=== PATIENT | female | born 1940 | race Caucasian/White ===

== ENCOUNTER 2017-11-10 22:20 | Emergency (ER) | payer MEDICARE ==
[~2017-11-10] VITALS: Ht 157.5 cm; Wt 109.8 kg
[~2017-11-10 22:20] MED LIST: ACET325 PO; ACYC200 PO; ALBU90OI6 INH; ASPI81CH PO; ASPI81EC PO; B-100 Complex1 EACH PO; CEFU250 PO; CIPR500 PO; CLOP75 PO; DOCU100 PO; FISH1000 PO; GLUCO PO; HYDACE5 PO; HYDCHL25 PO; Klor-Con 1010 MEQ PO; LEVSOD100 PO; LEVSOD125 PO; LISI20 PO; LOVA20 PO; MECL12.5 PO; MEGARED OMEGA-1 EAC1 PO; MELO7.5 PO; MORP30 PO; MUPI2TC TOP; Milk Of Ma400 MG/5 M PO; NITR100CA PO; POTA10T PO; PRED20 PO; TIOT18 INH; TRAM50 PO; TRIHYD253B PO; [UNRECOGNIZED DRUG - OTHER] PO
[2017-11-10 23:03] LABS: BASOPHILS ABSOLUTE AUTO 0.05 K/mm3 (0.00-0.23); BASOPHILS PERCENT AUTO 1 % (0-2); EOSINOPHILS ABSOLUTE AUTO 0.24 K/mm3 (0.00-0.68); EOSINOPHILS PERCENT AUTO 4 % (0-6); Hematocrit 38.6 % (33.0-51.0); Hemoglobin 11.9 g/dL (11.5-16.0); IMMATURE GRAN ABSOLUTE AUTO 0.01 K/mm3 (0.00-0.10); IMMATURE GRAN PERCENT AUTO 0 % (0-1); LYMPHOCYTES ABSOLUTE AUTO 1.33 K/mm3 (0.84-5.20); LYMPHOCYTES PERCENT AUTO 21 % (21-46); MONOCYTES ABSOLUTE AUTO 0.49 K/mm3 (0.16-1.47); MONOCYTES PERCENT AUTO 8 % (4-13); Mean Corpuscular HGB 25.2 pg (26.0-34.0); Mean Corpuscular HGB Conc 30.8 g/dL (31.5-36.5); Mean Corpuscular Volume 82 fL (80-100); Mean Platelet Volume 8.9 fL (9.1-12.4); NEUTROPHILS ABSOLUTE AUTO 4.35 K/mm3 (1.96-9.15); NEUTROPHILS PERCENT AUTO 67 % (41-73); Platelet Count 214 K/mm3 (150-400); RDW Coefficient Variation 17.2 % (11.7-14.2); RDW Standard Deviation 50.7 fL (35.1-46.3); Red Blood Cell Count 4.73 M/mm3 (3.80-5.20); White Blood Cell Count 6.47 K/mm3 (4.00-11.30)
[2017-11-10 23:28] LABS: Alanine Aminotransfer (ALT/SGP 17 U/L (12-78); Albumin, Blood 3.6 g/dL (3.4-5.0); Albumin/Globulin Ratio 1.1 (0.8-1.8); Alk Phos 85 U/L (50-136); Anion Gap 6 mmol/L (6-16); Aspartate Aminotrans (AST/SGOT 17 U/L (12-37); Bilirubin, Total 0.4 mg/dL (0.1-1.0); Blood Urea Nitrogen 22 mg/dL (8-24); Bun/Creatinine Ratio 20.8 (12.0-20.0); CO2, Blood 29 mmol/L (21-32); Calcium, Blood 10.2 mg/dL (8.5-10.1); Chloride, Blood 106 mmol/L (98-108); Creatinine, Blood 1.06 mg/dL (0.40-1.00); Globulin, Blood 3.4 g/dL (2.2-4.0); Glomerular Filtration Rate 54 (60-); Glucose, Blood 69 mg/dL (70-99); Potassium, Blood 4.3 mmol/L (3.5-5.5); Sodium, Blood 141 mmol/L (136-145); Troponin I <0.015 ng/mL (0.000-0.040)
[2017-11-11] MEDS ORDERED: Percocet 5-3251 EACH PO (00:55)
[2018-01-21] MEDS ORDERED: LEVSOD100 PO (00:53)
[2018-08-21] MEDS ORDERED: Mobic15 MG PO (11:29)
[2018-08-23] MEDS ORDERED: CIPR250 PO (02:30)
[2018-08-24] MEDS ORDERED: ROSUVASTATIN CA40 MG PO (15:46)
[2018-08-29] MEDS ORDERED: ALBU90OI INH (14:34)
[2018-08-29] MEDS ORDERED: DOCU100 PO (14:36)
[2018-08-29] MEDS ORDERED: CEPH500 PO (14:36)
[2018-08-29] MEDS ORDERED: NYSTATIN1 EAC1 TOP (14:37)
[2018-08-29] MEDS ORDERED: OMEG1CAP30 PO (14:38)
[2018-09-08] MEDS ORDERED: K-Dur10 MEQ PO (14:53)
[2018-09-08] MEDS ORDERED: Lasix20 MG PO (14:53)
== END 2017-11-11 01:38 | disposition home or self-care (01) ==
LOC: ER 22:20
PROVIDERS: Emergency Medicine
DX: M19.012 Primary osteoarthritis, left shoulder (principal); I10 Essential (primary) hypertension; E11.9 Type 2 diabetes mellitus without complications; E03.9 Hypothyroidism, unspecified; I25.2 Old myocardial infarction; Z88.2 Allergy status to sulfonamides; Z88.1 Allergy status to other antibiotic agents; Z88.5 Allergy status to narcotic agent; Z79.899 Other long term (current) drug therapy; Z79.82 Long term (current) use of aspirin; Z96.653 Presence of artificial knee joint, bilateral
CPT/HCPCS: 36415; 73030; 80053; 83880; 84484; 85025; 93005; 93010; 96374; 99283; J1885

== ENCOUNTER 2018-01-10 18:13 | Inpatient (IN) | payer MEDICARE ==
[~2018-01-10] VITALS: Ht 152.4 cm; Wt 96.7 kg
[~2018-01-10 18:13] MED LIST changes: +Percocet 5-3251 EACH PO
[2018-01-10 18:58] LABS: BASOPHILS ABSOLUTE AUTO 0.03 K/mm3 (0.00-0.23); BASOPHILS PERCENT AUTO 1 % (0-2); EOSINOPHILS ABSOLUTE AUTO 0.27 K/mm3 (0.00-0.68); EOSINOPHILS PERCENT AUTO 5 % (0-6); Hematocrit 35.3 % (33.0-51.0); IMMATURE GRAN ABSOLUTE AUTO 0.02 K/mm3 (0.00-0.10); IMMATURE GRAN PERCENT AUTO 0 % (0-1); LYMPHOCYTES ABSOLUTE AUTO 1.01 K/mm3 (0.84-5.20); LYMPHOCYTES PERCENT AUTO 17 % (21-46); MONOCYTES PERCENT AUTO 5 % (4-13); Mean Corpuscular HGB 25.5 pg (26.0-34.0); Mean Corpuscular HGB Conc 31.2 g/dL (31.5-36.5); Mean Corpuscular Volume 82 fL (80-100); Mean Platelet Volume 8.8 fL (9.1-12.4); NEUTROPHILS ABSOLUTE AUTO 4.17 K/mm3 (1.96-9.15); NEUTROPHILS PERCENT AUTO 72 % (41-73); Platelet Count 170 K/mm3 (150-400); RDW Coefficient Variation 16.5 % (11.7-14.2); RDW Standard Deviation 49.5 fL (35.1-46.3); Red Blood Cell Count 4.32 M/mm3 (3.80-5.20)
[2018-01-10 20:19] LABS: Albumin, Blood 3.3 g/dL (3.4-5.0); Bilirubin, Total 0.3 mg/dL (0.1-1.0); Bun/Creatinine Ratio 25.2 (12.0-20.0); Calcium, Blood 10.3 mg/dL (8.5-10.1); Creatinine, Blood 1.07 mg/dL (0.40-1.00); Globulin, Blood 3.4 g/dL (2.2-4.0); Total Protein, Blood 6.7 g/dL (6.4-8.2)
[2018-01-10 23:13] LABS: Source, Urine Clean Catch
[2018-01-10 23:15] LABS: Bilirubin, Urine Neg (Neg); Blood, Urine Neg (Neg); Glucose Qualitative, Urine Neg (Neg); Ketones, Urine Neg (Neg); Leukocyte Esterase, Urine Neg (Neg); Nitrite, Urine Neg (Neg); Protein, Urine Neg (Neg); Specific Gravity, Urine 1.015 (1.003-1.022); Urobilinogen, Urine NORM (Normal)
[2018-01-10 23:22] LABS: Appearance, Urine Clear (Clear); Color, Urine Yellow (P-Yellow)
== END 2018-01-15 17:33 | DRG 65 ==
LOC: ER 18:13 → MEDS 21:51
PROVIDERS: Emergency Medicine
DX: I63.9 Cerebral infarction, unspecified (principal); Z68.41 Body mass index [BMI] 40.0-44.9, adult; R47.01 Aphasia; R48.2 Apraxia; I10 Essential (primary) hypertension; E11.9 Type 2 diabetes mellitus without complications; E03.9 Hypothyroidism, unspecified; M54.9 Dorsalgia, unspecified; Z79.82 Long term (current) use of aspirin; E78.5 Hyperlipidemia, unspecified; E66.01 Morbid (severe) obesity due to excess calories
CPT/HCPCS: 36415; 70450; 72070; 80053; 81003; 82947; 83036; 85025; 92526; 92610; 93005; 93010; 97110; 97112; 97116; 97161; 97530; 99285; G8978; G8979; G8996; G8997; G8998

== ENCOUNTER 2018-01-21 00:38 | Emergency (ER) | payer MEDICARE ==
[~2018-01-21] VITALS: Ht 167.6 cm; Wt 113.4 kg
[2018-01-21] MEDS ORDERED: ASPI325 PO (00:52)
[2018-01-21] MEDS ORDERED: CLOP75 PO (00:52)
[2018-01-21] MEDS ORDERED: HYDCHL25 PO (00:53)
[2018-01-21] MEDS ORDERED: OMEG1CAP30 PO (00:53)
[2018-01-21] MEDS ORDERED: LEVSOD125 PO (00:53)
[2018-01-21] MEDS ORDERED: ZESTRIL40 MG PO (00:53)
[2018-01-21] MEDS ORDERED: POTCHL10ER PO (00:54)
[2018-01-21] MEDS ORDERED: MELO7.5 PO (00:54)
[2018-01-21] MEDS ORDERED: Tubersol (5 U/0.1 ML (00:54)
[2018-01-21 00:55] LABS: BASOPHILS ABSOLUTE AUTO 0.05 K/mm3 (0.00-0.23); BASOPHILS PERCENT AUTO 1 % (0-2); EOSINOPHILS ABSOLUTE AUTO 0.32 K/mm3 (0.00-0.68); EOSINOPHILS PERCENT AUTO 6 % (0-6); Hematocrit 38.1 % (33.0-51.0); Hemoglobin 11.8 g/dL (11.5-16.0); IMMATURE GRAN ABSOLUTE AUTO 0.01 K/mm3 (0.00-0.10); IMMATURE GRAN PERCENT AUTO 0 % (0-1); LYMPHOCYTES ABSOLUTE AUTO 1.55 K/mm3 (0.84-5.20); LYMPHOCYTES PERCENT AUTO 27 % (21-46); MONOCYTES ABSOLUTE AUTO 0.43 K/mm3 (0.16-1.47); MONOCYTES PERCENT AUTO 8 % (4-13); Mean Corpuscular HGB 25.9 pg (26.0-34.0); Mean Corpuscular Volume 84 fL (80-100); NEUTROPHILS ABSOLUTE AUTO 3.41 K/mm3 (1.96-9.15); NEUTROPHILS PERCENT AUTO 59 % (41-73); Platelet Count 205 K/mm3 (150-400); RDW Coefficient Variation 16.6 % (11.7-14.2); RDW Standard Deviation 50.8 fL (35.1-46.3); Red Blood Cell Count 4.56 M/mm3 (3.80-5.20); White Blood Cell Count 5.77 K/mm3 (4.00-11.30)
[2018-01-21] MEDS ORDERED: TRAM50 PO (00:55)
[2018-01-21] MEDS ORDERED: MECL12.5 PO (00:55)
[2018-01-21] MEDS ORDERED: Vitamin B Comple1 EA PO (00:55)
[2018-01-21] MEDS ORDERED: Novolog100 UNIT/2 (00:56)
[2018-01-21 01:14] LABS: Albumin, Blood 3.3 g/dL (3.4-5.0); Bilirubin, Total 0.3 mg/dL (0.1-1.0); Bun/Creatinine Ratio 33.9 (12.0-20.0); Calcium, Blood 10.4 mg/dL (8.5-10.1); Creatinine, Blood 1.21 mg/dL (0.40-1.00); Globulin, Blood 3.3 g/dL (2.2-4.0); Potassium, Blood 4.7 mmol/L (3.5-5.5); Total Protein, Blood 6.6 g/dL (6.4-8.2)
== END 2018-01-21 02:07 | disposition home or self-care (01) ==
LOC: ER 00:38
PROVIDERS: Emergency Medicine
DX: I63.9 Cerebral infarction, unspecified (principal); I69.320 Aphasia following cerebral infarction; E11.9 Type 2 diabetes mellitus without complications; I10 Essential (primary) hypertension; E03.9 Hypothyroidism, unspecified; Z79.82 Long term (current) use of aspirin; Z79.01 Long term (current) use of anticoagulants; Z79.4 Long term (current) use of insulin; Z88.2 Allergy status to sulfonamides; Z88.5 Allergy status to narcotic agent; Z88.1 Allergy status to other antibiotic agents; Z88.8 Allergy status to other drugs, medicaments and biological substances; Z79.899 Other long term (current) drug therapy
CPT/HCPCS: 80053; 85025; 93005; 93010; 99283

== ENCOUNTER 2018-05-25 00:10 | Emergency (ER) | payer MEDICARE ==
[~2018-05-25] VITALS: Ht 160 cm; Wt 99.3 kg
[~2018-05-25 00:10] MED LIST changes: +ASPI325 PO; +Novolog100 UNIT/2; +OMEG1CAP30 PO; +POTCHL10ER PO; +Tubersol (5 U/0.1 ML; +Vitamin B Comple1 EA PO; +ZESTRIL40 MG PO
[2018-05-25 01:45] LABS: Source, Urine Clean Catch
[2018-05-25 01:49] LABS: Bilirubin, Urine Neg (Neg); Blood, Urine 2+ (Neg); Glucose Qualitative, Urine Neg (Neg); Ketones, Urine Neg (Neg); Leukocyte Esterase, Urine 2+ (Neg); Nitrite, Urine Neg (Neg); Protein, Urine Neg (Neg); Specific Gravity, Urine 1.025 (1.003-1.022); Urobilinogen, Urine NORM (Normal)
[2018-05-25 01:52] LABS: Appearance, Urine Hazy (Clear); Color, Urine Yellow (P-Yellow)
[2018-05-25 01:59] LABS: Bacteria Many /hpf; Red Blood Cells, Urine 0-2 /hpf (0-2); Squamous Epithelial Cells Few /hpf (Few)
[2018-05-25] MEDS ORDERED: Macrobid 100 M100 MG PO (02:34)
== END 2018-05-25 02:42 | disposition home or self-care (01) ==
LOC: ER 00:10
PROVIDERS: Emergency Medicine
DX: N39.0 Urinary tract infection, site not specified (principal); Z88.2 Allergy status to sulfonamides; Z88.0 Allergy status to penicillin; Z88.5 Allergy status to narcotic agent; Z79.899 Other long term (current) drug therapy; Z79.82 Long term (current) use of aspirin; E11.9 Type 2 diabetes mellitus without complications; I10 Essential (primary) hypertension; E03.9 Hypothyroidism, unspecified; I25.2 Old myocardial infarction
CPT/HCPCS: 81001; 87086; 99283

== ENCOUNTER → 2018-06-04 | Outpatient (CLI) | payer MEDICARE ==
[~2018-06-04] MED LIST changes: +Macrobid 100 M100 MG PO
== END | disposition home or self-care (01) ==
LOC: LAB EV 09:30 → LAB SHORT 09:30
DX: N39.0 Urinary tract infection, site not specified (principal)
CPT/HCPCS: 87077; 87086; 87186

== ENCOUNTER 2018-06-25 11:25 | Inpatient (IN) | payer MEDICARE ==
[~2018-06-25] VITALS: Ht 157.5 cm; Wt 96.8 kg
[2018-06-25 12:13] LABS: BASOPHILS ABSOLUTE AUTO 0.04 K/mm3 (0.00-0.23); BASOPHILS PERCENT AUTO 1 % (0-2); EOSINOPHILS ABSOLUTE AUTO 0.14 K/mm3 (0.00-0.68); EOSINOPHILS PERCENT AUTO 2 % (0-6); Hemoglobin 13.1 g/dL (11.5-16.0); IMMATURE GRAN ABSOLUTE AUTO 0.01 K/mm3 (0.00-0.10); IMMATURE GRAN PERCENT AUTO 0 % (0-1); LYMPHOCYTES ABSOLUTE AUTO 0.84 K/mm3 (0.84-5.20); LYMPHOCYTES PERCENT AUTO 13 % (21-46); MONOCYTES ABSOLUTE AUTO 0.35 K/mm3 (0.16-1.47); MONOCYTES PERCENT AUTO 5 % (4-13); Mean Corpuscular HGB 28.2 pg (26.0-34.0); Mean Corpuscular Volume 88 fL (80-100); Mean Platelet Volume 8.4 fL (9.1-12.4); NEUTROPHILS PERCENT AUTO 79 % (41-73); Platelet Count 209 K/mm3 (150-400); RDW Coefficient Variation 13.5 % (11.7-14.2); RDW Standard Deviation 44.3 fL (35.1-46.3); Red Blood Cell Count 4.65 M/mm3 (3.80-5.20); White Blood Cell Count 6.58 K/mm3 (4.00-11.30)
[2018-06-25 12:38] LABS: Alanine Aminotransfer (ALT/SGP 15 U/L (12-78); Albumin, Blood 3.7 g/dL (3.4-5.0); Alk Phos 91 U/L (50-136); Anion Gap 5 mmol/L (6-16); Aspartate Aminotrans (AST/SGOT 12 U/L (12-37); Bilirubin, Total 0.5 mg/dL (0.1-1.0); Blood Urea Nitrogen 24 mg/dL (8-24); Bun/Creatinine Ratio 26.1 (12.0-20.0); CO2, Blood 29 mmol/L (21-32); Calcium, Blood 10.9 mg/dL (8.5-10.1); Chloride, Blood 107 mmol/L (98-108); Creatinine, Blood 0.92 mg/dL (0.40-1.00); Globulin, Blood 3.8 g/dL (2.2-4.0); Glomerular Filtration Rate >60 (60-); Glucose, Blood 88 mg/dL (70-99); Potassium, Blood 4.8 mmol/L (3.5-5.5); Sodium, Blood 141 mmol/L (136-145); Total Protein, Blood 7.5 g/dL (6.4-8.2); Troponin I 0.031 ng/mL (0.000-0.040)
[2018-06-25] MEDS ORDERED: LOSA25 PO (14:57)
[2018-06-25] MEDS ORDERED: [UNRECOGNIZED DRUG - CODE] PO (19:05)
[2018-06-26 03:40] LABS: Source, Urine Voided
[2018-06-26 03:44] LABS: Appearance, Urine Cloudy (Clear); Bilirubin, Urine Neg (Neg); Blood, Urine 3+ (Neg); Color, Urine Yellow (P-Yellow); Glucose Qualitative, Urine Neg (Neg); Ketones, Urine Neg (Neg); Leukocyte Esterase, Urine 3+ (Neg); Nitrite, Urine Pos (Neg); Protein, Urine 2+ (Neg); Urobilinogen, Urine NORM (Normal)
[2018-06-26 03:51] LABS: White Blood Cells, Urine TNTC /hpf (0-5)
[2018-06-26 03:52] LABS: Amorphous Mod (0-Heavy); Bacteria Many /hpf; Red Blood Cells, Urine 25-50 /hpf (0-2); Squamous Epithelial Cells Many /hpf (Few)
[2018-06-26 04:57] LABS: BASOPHILS ABSOLUTE AUTO 0.05 K/mm3 (0.00-0.23); BASOPHILS PERCENT AUTO 1 % (0-2); EOSINOPHILS ABSOLUTE AUTO 0.08 K/mm3 (0.00-0.68); EOSINOPHILS PERCENT AUTO 1 % (0-6); Hematocrit 38.1 % (33.0-51.0); Hemoglobin 12.2 g/dL (11.5-16.0); IMMATURE GRAN ABSOLUTE AUTO 0.02 K/mm3 (0.00-0.10); IMMATURE GRAN PERCENT AUTO 0 % (0-1); LYMPHOCYTES ABSOLUTE AUTO 0.99 K/mm3 (0.84-5.20); LYMPHOCYTES PERCENT AUTO 14 % (21-46); MONOCYTES ABSOLUTE AUTO 0.49 K/mm3 (0.16-1.47); MONOCYTES PERCENT AUTO 7 % (4-13); Mean Corpuscular HGB 27.9 pg (26.0-34.0); Mean Corpuscular Volume 87 fL (80-100); Mean Platelet Volume 8.6 fL (9.1-12.4); NEUTROPHILS ABSOLUTE AUTO 5.34 K/mm3 (1.96-9.15); NEUTROPHILS PERCENT AUTO 77 % (41-73); Platelet Count 192 K/mm3 (150-400); RDW Coefficient Variation 13.3 % (11.7-14.2); RDW Standard Deviation 43.1 fL (35.1-46.3); Red Blood Cell Count 4.38 M/mm3 (3.80-5.20); White Blood Cell Count 6.97 K/mm3 (4.00-11.30)
[2018-06-26 05:21] LABS: Calcium, Blood 10.4 mg/dL (8.5-10.1); Creatinine, Blood 0.96 mg/dL (0.40-1.00); Potassium, Blood 4.6 mmol/L (3.5-5.5); Troponin I 0.032 ng/mL (0.000-0.040)
[2018-06-29] MEDS ORDERED: TRAM50 PO (12:21)
[2018-06-29] MEDS ORDERED: PANT40 PO (12:22)
== END 2018-06-29 14:02 | disposition home or self-care (01) | DRG 313 ==
LOC: ER 11:25 → PCU 16:37
PROVIDERS: Emergency Medicine; Family Medicine
DX: R07.89 Other chest pain (principal); J44.9 Chronic obstructive pulmonary disease, unspecified; E11.9 Type 2 diabetes mellitus without complications; K21.9 Gastro-esophageal reflux disease without esophagitis; I25.2 Old myocardial infarction; I25.10 Atherosclerotic heart disease of native coronary artery without angina pectoris; I10 Essential (primary) hypertension; E03.9 Hypothyroidism, unspecified; I70.90 Unspecified atherosclerosis; F32.9 Major depressive disorder, single episode, unspecified; E78.00 Pure hypercholesterolemia, unspecified; M47.816 Spondylosis without myelopathy or radiculopathy, lumbar region; G89.29 Other chronic pain; M54.9 Dorsalgia, unspecified; E78.5 Hyperlipidemia, unspecified; I73.9 Peripheral vascular disease, unspecified; R26.81 Unsteadiness on feet; Z88.8 Allergy status to other drugs, medicaments and biological substances; Z88.2 Allergy status to sulfonamides; Z88.1 Allergy status to other antibiotic agents; Z88.5 Allergy status to narcotic agent; Z79.899 Other long term (current) drug therapy; Z79.82 Long term (current) use of aspirin; Z79.01 Long term (current) use of anticoagulants
CPT/HCPCS: 36415; 71046; 78452; 80048; 80053; 81001; 82947; 84484; 85025; 87077; 87086; 87186; 90686; 93005; 93010; 93017; 94640; 94760; 99285-25; A9500; J0706; J2785

== ENCOUNTER → 2018-07-10 | Outpatient (CLI) | payer MEDICARE ==
[~2018-07-10] MED LIST changes: +LOSA25 PO; +PANT40 PO; +[UNRECOGNIZED DRUG - CODE] PO
[2018-07-10 14:01] LABS: Source, Urine Clean Catch
[2018-07-10 15:15] LABS: Appearance, Urine Hazy (Clear); Bilirubin, Urine Neg (Neg); Blood, Urine 2+ (Neg); Color, Urine Yellow (P-Yellow); Glucose Qualitative, Urine Neg (Neg); Ketones, Urine Neg (Neg); Leukocyte Esterase, Urine 3+ (Neg); Nitrite, Urine Neg (Neg); Protein, Urine 1+ (Neg); Urobilinogen, Urine NORM (Normal)
[2018-07-10 15:24] LABS: Bacteria Many /hpf; Squamous Epithelial Cells Many /hpf (Few); White Blood Cells, Urine TNTC /hpf (0-5)
== END | disposition home or self-care (01) ==
LOC: LAB SHORT 14:00 → LAB 14:00
PROVIDERS: Family Medicine
DX: N30.01 Acute cystitis with hematuria (principal)
CPT/HCPCS: 81001; 87077; 87086; 87186

== ENCOUNTER 2018-10-25 02:33 | Emergency (ER) | payer MEDICARE ==
[~2018-10-25] VITALS: Ht 157.5 cm; Wt 113.4 kg
[~2018-10-25 02:33] MED LIST changes: +ALBU90OI INH; +CEPH500 PO; +CIPR250 PO; +K-Dur10 MEQ PO; +Lasix20 MG PO; +Mobic15 MG PO; +NYSTATIN1 EAC1 TOP; +ROSUVASTATIN CA40 MG PO
[2018-10-25] MEDS ORDERED: Tetracycline H500 MG PO (03:00)
[2018-10-25 03:18] LABS: BASOPHILS ABSOLUTE AUTO 0.03 K/mm3 (0.00-0.23); BASOPHILS PERCENT AUTO 1 % (0-2); EOSINOPHILS PERCENT AUTO 8 % (0-6); Hematocrit 42.2 % (33.0-51.0); IMMATURE GRAN ABSOLUTE AUTO 0.01 K/mm3 (0.00-0.10); IMMATURE GRAN PERCENT AUTO 0 % (0-1); LYMPHOCYTES ABSOLUTE AUTO 1.42 K/mm3 (0.84-5.20); LYMPHOCYTES PERCENT AUTO 22 % (21-46); MONOCYTES ABSOLUTE AUTO 0.52 K/mm3 (0.16-1.47); MONOCYTES PERCENT AUTO 8 % (4-13); Mean Corpuscular HGB 27.8 pg (26.0-34.0); Mean Corpuscular HGB Conc 30.8 g/dL (31.5-36.5); Mean Corpuscular Volume 90 fL (80-100); Mean Platelet Volume 8.7 fL (9.1-12.4); NEUTROPHILS ABSOLUTE AUTO 4.14 K/mm3 (1.96-9.15); NEUTROPHILS PERCENT AUTO 62 % (41-73); Platelet Count 184 K/mm3 (150-400); RDW Coefficient Variation 14.5 % (11.7-14.2); RDW Standard Deviation 47.7 fL (35.1-46.3); Red Blood Cell Count 4.68 M/mm3 (3.80-5.20); White Blood Cell Count 6.62 K/mm3 (4.00-11.30)
[2018-10-25 03:36] LABS: Albumin, Blood 3.3 g/dL (3.4-5.0); Bilirubin, Total 0.4 mg/dL (0.1-1.0); Bun/Creatinine Ratio 28.9 (12.0-20.0); Calcium, Blood 9.5 mg/dL (8.5-10.1); Creatinine, Blood 1.21 mg/dL (0.40-1.00); Globulin, Blood 3.3 g/dL (2.2-4.0); Potassium, Blood 3.8 mmol/L (3.5-5.5); Total Protein, Blood 6.6 g/dL (6.4-8.2)
[2018-10-25] MEDS ORDERED: Silvadene20 GM TOP (04:36)
== END 2018-10-25 04:50 | disposition home or self-care (01) ==
LOC: ER 02:33
PROVIDERS: Emergency Medicine
DX: B37.2 Candidiasis of skin and nail (principal); L30.9 Dermatitis, unspecified; E11.9 Type 2 diabetes mellitus without complications; I10 Essential (primary) hypertension; E03.9 Hypothyroidism, unspecified; I25.2 Old myocardial infarction; Z88.2 Allergy status to sulfonamides; Z88.0 Allergy status to penicillin; Z79.899 Other long term (current) drug therapy
CPT/HCPCS: 36415; 80053; 85025; 99283

== ENCOUNTER 2018-11-19 04:22 | Emergency (ER) | payer MEDICARE ==
[~2018-11-19] VITALS: Ht 157.5 cm; Wt 113.4 kg
[~2018-11-19 04:22] MED LIST changes: +Silvadene20 GM TOP; +Tetracycline H500 MG PO
[2018-11-19 04:57] LABS: BASOPHILS ABSOLUTE AUTO 0.02 K/mm3 (0.00-0.23); BASOPHILS PERCENT AUTO 0 % (0-2); EOSINOPHILS ABSOLUTE AUTO 0.56 K/mm3 (0.00-0.68); EOSINOPHILS PERCENT AUTO 9 % (0-6); Hematocrit 40.3 % (33.0-51.0); IMMATURE GRAN ABSOLUTE AUTO 0.01 K/mm3 (0.00-0.10); IMMATURE GRAN PERCENT AUTO 0 % (0-1); LYMPHOCYTES ABSOLUTE AUTO 1.32 K/mm3 (0.84-5.20); LYMPHOCYTES PERCENT AUTO 20 % (21-46); MONOCYTES ABSOLUTE AUTO 0.39 K/mm3 (0.16-1.47); MONOCYTES PERCENT AUTO 6 % (4-13); Mean Corpuscular HGB 26.9 pg (26.0-34.0); Mean Corpuscular HGB Conc 29.8 g/dL (31.5-36.5); Mean Corpuscular Volume 90 fL (80-100); Mean Platelet Volume 8.9 fL (9.1-12.4); NEUTROPHILS ABSOLUTE AUTO 4.22 K/mm3 (1.96-9.15); NEUTROPHILS PERCENT AUTO 65 % (41-73); Platelet Count 173 K/mm3 (150-400); RDW Coefficient Variation 13.4 % (11.7-14.2); RDW Standard Deviation 44.5 fL (35.1-46.3); Red Blood Cell Count 4.46 M/mm3 (3.80-5.20); White Blood Cell Count 6.52 K/mm3 (4.00-11.30)
[2018-11-19 05:16] LABS: Albumin, Blood 3.5 g/dL (3.4-5.0); Albumin/Globulin Ratio 1.1 (0.8-1.8); Bilirubin, Total 0.4 mg/dL (0.1-1.0); Bun/Creatinine Ratio 26.5 (12.0-20.0); Calcium, Blood 9.9 mg/dL (8.5-10.1); Creatinine, Blood 0.98 mg/dL (0.40-1.00); Globulin, Blood 3.1 g/dL (2.2-4.0); Potassium, Blood 4.1 mmol/L (3.5-5.5); Total Protein, Blood 6.6 g/dL (6.4-8.2)
== END 2018-11-19 05:42 | disposition home or self-care (01) ==
LOC: ER 04:22
PROVIDERS: Emergency Medicine
DX: R06.02 Shortness of breath (principal); Z76.0 Encounter for issue of repeat prescription; Z88.2 Allergy status to sulfonamides; Z88.1 Allergy status to other antibiotic agents; Z88.5 Allergy status to narcotic agent; Z79.899 Other long term (current) drug therapy; Z88.0 Allergy status to penicillin; Z79.82 Long term (current) use of aspirin; I10 Essential (primary) hypertension; E11.9 Type 2 diabetes mellitus without complications; E03.9 Hypothyroidism, unspecified; I25.2 Old myocardial infarction
CPT/HCPCS: 71046; 80053; 85025; 93005; 93010; 94640; 99285-25

== ENCOUNTER 2018-12-11 19:23 | Emergency (ER) | payer MEDICARE ==
[~2018-12-11] VITALS: Ht 157.5 cm; Wt 115.7 kg
== END 2018-12-11 21:41 | disposition home or self-care (01) ==
LOC: ER 19:23
DX: S70.01XA Contusion of right hip, initial encounter (principal); E11.9 Type 2 diabetes mellitus without complications; I10 Essential (primary) hypertension; E03.9 Hypothyroidism, unspecified; I25.2 Old myocardial infarction; Z88.2 Allergy status to sulfonamides; Z88.1 Allergy status to other antibiotic agents; Z88.5 Allergy status to narcotic agent; Z88.8 Allergy status to other drugs, medicaments and biological substances; Z79.899 Other long term (current) drug therapy; Z79.82 Long term (current) use of aspirin; Z79.02 Long term (current) use of antithrombotics/antiplatelets; W18.30XA Fall on same level, unspecified, initial encounter
CPT/HCPCS: 72100; 73502; 96374; 99283-25; J1170

== ENCOUNTER 2018-12-20 22:37 | Emergency (ER) | payer MEDICARE ==
[~2018-12-20] VITALS: Ht 157.5 cm; Wt 113.4 kg
[2018-12-20] MEDS ORDERED: Zithromax250 MG PO (23:50)
[2018-12-20] MEDS ORDERED: Prednisone20 MG PO (23:50)
[2018-12-21] MEDS ORDERED: AEROECLIPSE II1 EACH INH (00:28)
[2018-12-21] MEDS ORDERED: ALBU3IS INH (00:28)
== END 2018-12-21 00:50 | disposition home or self-care (01) ==
LOC: ER 22:37
DX: J44.1 Chronic obstructive pulmonary disease with (acute) exacerbation (principal); E11.9 Type 2 diabetes mellitus without complications; I10 Essential (primary) hypertension; E03.9 Hypothyroidism, unspecified; I25.2 Old myocardial infarction; Z79.899 Other long term (current) drug therapy; Z79.82 Long term (current) use of aspirin
CPT/HCPCS: 94640; 96372; 99284-25; J2920

== ENCOUNTER 2019-01-13 10:22 | Emergency (ER) | payer MEDICARE ==
[~2019-01-13] VITALS: Ht 157.5 cm; Wt 113.4 kg
[~2019-01-13 10:22] MED LIST changes: +AEROECLIPSE II1 EACH INH; +ALBU3IS INH; +Prednisone20 MG PO; +Zithromax250 MG PO
[2019-01-13 10:53] LABS: BASOPHILS ABSOLUTE AUTO 0.03 K/mm3 (0.00-0.23); BASOPHILS PERCENT AUTO 1 % (0-2); EOSINOPHILS ABSOLUTE AUTO 0.52 K/mm3 (0.00-0.68); EOSINOPHILS PERCENT AUTO 11 % (0-6); Hemoglobin 13.7 g/dL (11.5-16.0); IMMATURE GRAN ABSOLUTE AUTO 0.01 K/mm3 (0.00-0.10); IMMATURE GRAN PERCENT AUTO 0 % (0-1); LYMPHOCYTES ABSOLUTE AUTO 0.91 K/mm3 (0.84-5.20); LYMPHOCYTES PERCENT AUTO 19 % (21-46); MONOCYTES ABSOLUTE AUTO 0.23 K/mm3 (0.16-1.47); MONOCYTES PERCENT AUTO 5 % (4-13); Mean Corpuscular HGB 27.1 pg (26.0-34.0); Mean Corpuscular HGB Conc 29.8 g/dL (31.5-36.5); Mean Corpuscular Volume 91 fL (80-100); Mean Platelet Volume 8.7 fL (9.1-12.4); NEUTROPHILS ABSOLUTE AUTO 3.22 K/mm3 (1.96-9.15); NEUTROPHILS PERCENT AUTO 65 % (41-73); Platelet Count 137 K/mm3 (150-400); RDW Standard Deviation 52.7 fL (35.1-46.3); Red Blood Cell Count 5.06 M/mm3 (3.80-5.20); White Blood Cell Count 4.92 K/mm3 (4.00-11.30)
[2019-01-13 11:14] LABS: Alanine Aminotransfer (ALT/SGP 13 U/L (12-78); Albumin, Blood 3.7 g/dL (3.4-5.0); Albumin/Globulin Ratio 1.2 (0.8-1.8); Alk Phos 91 U/L (50-136); Anion Gap 4 mmol/L (6-16); Aspartate Aminotrans (AST/SGOT 21 U/L (12-37); Bilirubin, Total 0.5 mg/dL (0.1-1.0); Blood Urea Nitrogen 22 mg/dL (8-24); Bun/Creatinine Ratio 20.6 (12.0-20.0); CO2, Blood 32 mmol/L (21-32); Calcium, Blood 10.4 mg/dL (8.5-10.1); Chloride, Blood 109 mmol/L (98-108); Creatinine, Blood 1.07 mg/dL (0.40-1.00); Globulin, Blood 3.1 g/dL (2.2-4.0); Glomerular Filtration Rate 53 (60-); Glucose, Blood 101 mg/dL (70-99); Potassium, Blood 4.7 mmol/L (3.5-5.5); Sodium, Blood 145 mmol/L (136-145); Total Protein, Blood 6.8 g/dL (6.4-8.2); Troponin I <0.015 ng/mL (0.000-0.040)
--- NOTE | 2019-01-13 11:34 | NUR ---
Call back - Pt known from previous hospital visit. Pt's daughter Chelo and GD Sherice enter and stay for a short time. After leaving, exploration of pt's spiritual pain initiated. Pt wrestling with staying with family and going home with Anatoliy. 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 Pt states she feels she has been dealing a UTI for 3 weeks, but has been unable to have it checked with circumstances at home. Addressed the possibility of speaking with a licensing worker about entering a halfway. She was interested and JANNY Longo was notified. Prayer was provided for the pt as a means of comfort.
[2019-01-13] MEDS ORDERED: Lotrimin AF90 GM TOP (13:38)
== END 2019-01-13 15:05 | disposition home or self-care (01) ==
LOC: ER 10:22
PROVIDERS: Emergency Medicine
DX: F32.9 Major depressive disorder, single episode, unspecified (principal); F43.9 Reaction to severe stress, unspecified; R32 Unspecified urinary incontinence; E11.9 Type 2 diabetes mellitus without complications; I10 Essential (primary) hypertension; E03.9 Hypothyroidism, unspecified; I25.2 Old myocardial infarction; Z88.2 Allergy status to sulfonamides; Z88.1 Allergy status to other antibiotic agents; Z88.5 Allergy status to narcotic agent; Z88.8 Allergy status to other drugs, medicaments and biological substances; Z79.899 Other long term (current) drug therapy; Z79.82 Long term (current) use of aspirin; Z79.02 Long term (current) use of antithrombotics/antiplatelets; Z79.52 Long term (current) use of systemic steroids
CPT/HCPCS: 36415; 71046; 80053; 83880; 84484; 85025; 93005; 93010; 99284-25

== ENCOUNTER 2019-01-13 18:29 | Inpatient (IN) | payer MEDICARE ==
[~2019-01-13] VITALS: Ht 157.5 cm; Wt 110.5 kg
[~2019-01-13 18:29] MED LIST changes: +Lotrimin AF90 GM TOP
[2019-01-13 19:15] LABS: Source, Urine Catheter
[2019-01-13 19:20] LABS: Bilirubin, Urine Neg (Neg); Blood, Urine 4+ (Neg); Glucose Qualitative, Urine Neg (Neg); Ketones, Urine Neg (Neg); Leukocyte Esterase, Urine 2+ (Neg); Nitrite, Urine Neg (Neg); Protein, Urine Neg (Neg); Specific Gravity, Urine 1.015 (1.003-1.022); Urobilinogen, Urine NORM (Normal)
[2019-01-13 19:26] LABS: Color, Urine Pale Yellow (P-Yellow)
[2019-01-13 19:27] LABS: Appearance, Urine Clear (Clear)
[2019-01-13 19:28] LABS: Bacteria Many /hpf; Squamous Epithelial Cells Not Seen /hpf (Few)
--- NOTE | 2019-01-14 00:58 | NUR ---
2130: PATIENT ARRIVED TO THE MEDICAL FLOOR; ASSESSMENTS/ADMISSION COMPLETED PATIENT HAS AN IV #22 RH THAT FLUSHES WELL. WRAPPED WITH COBAN. SKIN AROUND PERINEUM BRIGHT RED AND IRRITATED. AND NYSTATIN POWDER WAS APPLIED PER ORDER. BI;ATERA; FEET RED AND NUMB AND TINGLING PER PATIENT. 0015: SPOKE TO ONCALL HOSPITALIST AND REQ TYLENOL FOR HEADACHE FOR THIS PATIENT. ORDERS RECVD PER EMAR
[2019-01-14 05:35] LABS: Bun/Creatinine Ratio 17.8 (12.0-20.0); Calcium, Blood 10.6 mg/dL (8.5-10.1); Creatinine, Blood 1.01 mg/dL (0.40-1.00); Potassium, Blood 3.9 mmol/L (3.5-5.5)
--- NOTE | 2019-01-14 14:05 | NUR ---
PT HAS RETURNED FROM IMAGING FOR MRI EXAM.
--- NOTE | 2019-01-14 16:55 | NUR ---
SHIFT SUMMARY: PT IS COOPERATIVE WITH CARE. SHE NEGLECTS USE OF HER RIGHT SIDE AND NEEDS REMINDERS TO USE IT. SHE NEEDED ASSISTANCE WITH EATING BREAKFAST AND LIQUID/PUDDING TEXTURES. CHANGED DIET TO FINGER FOODS AND SHE IS ABLE TO COORDINATE WELL ENOUGH TO FEED HERSELF. SHE WORKED WITH PT/OT AND IS A MAX ASSIST WITH RECOMMENDATION FOR OVERHEAD LIFT. BAKERY DECORATOR NOTIFIED OF NEED FOR LIFT RM. PT SAT UP IN A 90 DEGREE SITTING POSITION FOR LUNCH AND WILL ENCOURAGE FOR DINNER. SHE IS ABLE TO SWALLOW 1 PILL AT A TIME WITH WATER. WILL CTM UNTIL REPORT GIVEN TO NEXT SHIFT RN.
--- NOTE | 2019-01-14 17:21 | NUR ---
CLARIFIED ORDER WITH JENNI MARROQUIN TO LEAVE WILSON CATH THAT WAS ORDERED AND PLACED IN THE E.D. IN PLACE.
--- NOTE | 2019-01-15 04:15 | NUR ---
SHIFT SUMMARY: PT IS ALERT AND ORIENTED. PT IS CALM AND COOPERATIVE WITH CARE. PT CALLS APPROPRIATELY. PT IS A 2 PERSON ASSIST AND W/C BOUND AT BASELINE. PT SLEPT MOST OF THE NIGHT AND MORNING HOURS. PT DENIES PAIN, NAUSEA, VOMITING, AND SOB. TURNS THROUGHOUT THE NIGHT. WILSON PATENT AND DRAINING YELLOW URINE. NO ACUTE CHANGES OR COMPLICATIONS THIS SHIFT. BED IN LOW POSITION, CALL LIGHT WITHIN REACH.
--- NOTE | 2019-01-15 14:12 | NUR ---
Patient granted me permission to care for her.
--- NOTE | 2019-01-15 15:57 | NUR ---
SHIFT SUMMARY- PT A/O, FORGETFUL AT TIMES. PT DENIES ANY PAIN OR OTHER COMPLAINTS T/O SHIFT. LS DIMINISHED, ON RA. HRR. RIGHT SIDE WEAKNESS NOTICED FROM PREVIOUS CVA PER PT. WILSON IN PLACE, PATENT AND DRAINING, WILL D/C PER DR HASSAN. ORAL ANTIBIOTICS STARTED FOR UTI. YEAST TO ABD FOLDS/ ELENITA AREA, NYSTATIN APPLIED. PT/OT RECOMMENDING SNF, PT DID AGREE TO GO FOR 10 DAYS THEN HOME WITH HOME HEALTH PER DAUGHTER REQUEST. NO OTHER ACUTE CHANGES THIS SHIFT.
--- NOTE | 2019-01-15 16:04 | NUR ---
REPORT GIVEN TO JANNY BERRY TO ASSUME CARE OF PT.
--- NOTE | 2019-01-15 17:33 | NUR ---
assumed pt care PT IS A/O X3, PLEASANT/RECEPTIVE, STATE NO DISCOMFORT @ THIS TIME. STATE UNABLE TO BR WT OR AMBULATE @ THIS TIME. R ACCORDION MAKER GOOD HOWEVER WEAKER THAN L. SHE STATE SHE IS R HANDED HOWEVER ABLE TO FEED HERSELF USING L. STATE SHE IS NORMALLY ABLE TO TELL WHEN SHE NEEDS TO VOID, WILL CALL FOR BEDPAN. KATIE CATH D/C @ THIS TIME, 700 CL YELLOW URINE.
--- NOTE | 2019-01-15 17:48 | NUR ---
Mrs. Quesada tells me she is happy to be feeling healed and is looking forward to going home today. Her grand-daughter takes care of her and they have a good relationship. She smiles easily and responded well to prayer and affirmation. No needs or fears presented. Electronics Repair Technician services will remain available.
--- NOTE | 2019-01-16 05:06 | NUR ---
VSS, AFEBRILE, STABLE, NO SIGNIFICANT CHANGES OVERNOC, SLEPT WELL, NO COMPLAINTS, WILL REPORT TO ON-COMING SHIFT.
--- NOTE | 2019-01-16 13:00 | NUR ---
PT ARRIVED TO ROOM 336 VIA W/C, SBA INTO BED. PT ORIENTED TO ROOM AND CALL SYSTEM, CALL LIGHT IN REACH. NO COMPLAINTS AT THIS TIME.
--- NOTE | 2019-01-16 17:38 | NUR ---
SHIFT SUMMARY- PT A/O BUT FORGETFUL AT TIMES. PT DENIES ANY COMPLAINTS T/O SHIFT. PT UP TO CHAIR VIA TOM LIFT. PT WITH RIGHT SIDED WEAKNESS R/T CVA. LS CLEAR, ON RA. HRR. INCONT OF URINE. PT AWAITING INSURANCE APRROVAL FOR [facility]. NO OTHER ACUTE CHANGES THIS SHIFT.
--- NOTE | 2019-01-17 03:43 | NUR ---
SHIFT SUMMARY PATIENT HAD NO ACUTE CHANGES OBSERVED DURING THE SHIFT. PATIENT AXO X3 BUT FORGETFUL AT TIMES. TAKES MEDICATION WHOLE ONE AT A TIME W/PUDDING. DENIES PAIN, SOB, AND N/V. PIV REMAINS INTACT. ON RA. BREATHING TX BY RT. COOPERATIVE W/CARE. CALL LIGHT IN REACH. BED IN LOWEST POSITION. WILL CONTINUE TO MONITOR UNTIL DAY SHIFT NURSE ASSUMES CARE.
[2019-01-17] MEDS ORDERED: ACET325 PO (10:21)
[2019-01-17] MEDS ORDERED: BISA10S PR (10:22)
[2019-01-17] MEDS ORDERED: DOCU100 PO (10:22)
[2019-01-17] MEDS ORDERED: Nyamyc15 GM TOP (10:23)
[2019-01-17] MEDS ORDERED: Milk Of Ma400 MG/5 M PO (10:23)
[2019-01-17] MEDS ORDERED: NITR100CA PO (10:24)
--- NOTE | 2019-01-17 12:57 | NUR ---
DISCHARGE PT DISCHARGED TO [facility]. THIS RN GAVE REPORT TO JANNY TRIPLETT. IV REMOVED WITHOUT DIFFICULTY. PT TRANSFERRED TO WHEELCHAIR VAN BY WHEELCHAIR. TOM LIFT USED TO GET PT IN TO WHEELCHAIR. PT'S BELONGINGS WITH PT.
== END 2019-01-17 11:43 | DRG 65 ==
LOC: ER 18:29 → MEDS 18:30
PROVIDERS: Emergency Medicine; ADMIT Family Medicine
DX: I63.9 Cerebral infarction, unspecified (principal); Z68.42 Body mass index [BMI] 45.0-49.9, adult; N39.0 Urinary tract infection, site not specified; F32.9 Major depressive disorder, single episode, unspecified; Z79.82 Long term (current) use of aspirin; E11.9 Type 2 diabetes mellitus without complications; I10 Essential (primary) hypertension; E03.9 Hypothyroidism, unspecified; I25.2 Old myocardial infarction; Z96.641 Presence of right artificial hip joint; E66.01 Morbid (severe) obesity due to excess calories; I25.10 Atherosclerotic heart disease of native coronary artery without angina pectoris; J44.9 Chronic obstructive pulmonary disease, unspecified; Z79.02 Long term (current) use of antithrombotics/antiplatelets; B35.3 Tinea pedis; M47.816 Spondylosis without myelopathy or radiculopathy, lumbar region; R41.89 Other symptoms and signs involving cognitive functions and awareness; Z66 Do not resuscitate
CPT/HCPCS: 36415; 51702; 70450; 70551; 80048; 81001; 82947; 87077; 87086; 87186; 93005; 93010; 94640; 94760; 96365-59; 97110; 97162; 97166; 97530; 97535; 99285-25; J0696; J1650

== ENCOUNTER → 2019-03-19 | Outpatient (CLI) | payer MEDICARE, SELFPAY ==
[~2019-03-19] MED LIST changes: +ACET500 PO; +ALBU2.5V5 INH; +BISA10S PR; +BREO ELLIPTA 21 EACH INH; +Nyamyc15 GM TOP; +SYNTHROID175 MCG PO; +Vsl#3 Capsule1 EACH
[2019-03-19 11:27] LABS: Bilirubin, Urine Neg (Neg); Blood, Urine 3+ (Neg); Glucose Qualitative, Urine Neg (Neg); Ketones, Urine Neg (Neg); Leukocyte Esterase, Urine 3+ (Neg); Nitrite, Urine Neg (Neg); Protein, Urine 2+ (Neg); Specific Gravity, Urine 1.025 (1.003-1.022); Urobilinogen, Urine NORM (Normal)
[2019-03-19 12:06] LABS: Appearance, Urine Hazy (Clear); Color, Urine Yellow (P-Yellow)
[2019-03-19 12:08] LABS: Granular Casts 0-2 /lpf (0)
[2019-03-19 12:09] LABS: Bacteria Many /hpf; Squamous Epithelial Cells Many /hpf (Few); White Blood Cells, Urine 25-50 /hpf (0-5)
== END | disposition home or self-care (01) ==
LOC: LAB 11:13 → LAB HH 11:13
PROVIDERS: Family Medicine
DX: N39.0 Urinary tract infection, site not specified (principal)
CPT/HCPCS: 81001; 87077; 87086; 87186

== ENCOUNTER 2019-06-24 13:21 | Emergency (ER) | payer MEDICARE, SELFPAY ==
[~2019-06-24] VITALS: Ht 157.5 cm; Wt 113.4 kg
[~2019-06-24 13:21] MED LIST changes: -ACET500 PO; -ALBU2.5V5 INH; -BREO ELLIPTA 21 EACH INH; -SYNTHROID175 MCG PO; -Vsl#3 Capsule1 EACH
[2019-06-24 14:34] LABS: BASOPHILS ABSOLUTE AUTO 0.04 K/mm3 (0.00-0.23); BASOPHILS PERCENT AUTO 1 % (0-2); EOSINOPHILS ABSOLUTE AUTO 0.29 K/mm3 (0.00-0.68); EOSINOPHILS PERCENT AUTO 6 % (0-6); Hematocrit 48.5 % (33.0-51.0); Hemoglobin 15.2 g/dL (11.5-16.0); IMMATURE GRAN ABSOLUTE AUTO 0.01 K/mm3 (0.00-0.10); IMMATURE GRAN PERCENT AUTO 0 % (0-1); LYMPHOCYTES ABSOLUTE AUTO 1.08 K/mm3 (0.84-5.20); LYMPHOCYTES PERCENT AUTO 22 % (21-46); MONOCYTES ABSOLUTE AUTO 0.23 K/mm3 (0.16-1.47); MONOCYTES PERCENT AUTO 5 % (4-13); Mean Corpuscular HGB 29.4 pg (26.0-34.0); Mean Corpuscular HGB Conc 31.3 g/dL (31.5-36.5); Mean Corpuscular Volume 94 fL (80-100); Mean Platelet Volume 9.1 fL (9.1-12.4); NEUTROPHILS ABSOLUTE AUTO 3.29 K/mm3 (1.96-9.15); NEUTROPHILS PERCENT AUTO 67 % (41-73); Platelet Count 145 K/mm3 (150-400); RDW Coefficient Variation 14.4 % (11.7-14.2); RDW Standard Deviation 49.4 fL (35.1-46.3); Red Blood Cell Count 5.17 M/mm3 (3.80-5.20); White Blood Cell Count 4.94 K/mm3 (4.00-11.30)
[2019-06-24 14:49] LABS: Albumin/Globulin Ratio 1.2 (0.8-1.8); Bilirubin, Total 0.4 mg/dL (0.1-1.0); Bun/Creatinine Ratio 17.6 (12.0-20.0); Calcium, Blood 11.2 mg/dL (8.5-10.1); Creatinine, Blood 1.36 mg/dL (0.40-1.00); Globulin, Blood 3.3 g/dL (2.2-4.0); Potassium, Blood 3.3 mmol/L (3.5-5.5); Total Protein, Blood 7.3 g/dL (6.4-8.2)
[2019-06-24 15:12] LABS: Source, Urine Catheter
[2019-06-24 15:15] LABS: Bilirubin, Urine Neg (Neg); Blood, Urine 3+ (Neg); Glucose Qualitative, Urine Neg (Neg); Ketones, Urine Neg (Neg); Leukocyte Esterase, Urine Neg (Neg); Nitrite, Urine Neg (Neg); Protein, Urine 2+ (Neg); Specific Gravity, Urine 1.025 (1.003-1.022); Urobilinogen, Urine NORM (Normal)
[2019-06-24 15:21] LABS: Appearance, Urine Clear (Clear); Color, Urine Yellow (P-Yellow)
[2019-06-24 15:22] LABS: White Blood Cells, Urine 0-2 /hpf (0-5)
[2019-06-24 15:23] LABS: Bacteria Few /hpf; Mucus Light (0-Heavy); Squamous Epithelial Cells Few /hpf (Few)
== END 2019-06-24 17:34 | disposition home or self-care (01) ==
LOC: ER 13:21
PROVIDERS: Internal Medicine
DX: R41.0 Disorientation, unspecified (principal); R53.1 Weakness; E03.9 Hypothyroidism, unspecified; I25.2 Old myocardial infarction; I25.10 Atherosclerotic heart disease of native coronary artery without angina pectoris; I10 Essential (primary) hypertension; E11.9 Type 2 diabetes mellitus without complications; Z86.73 Personal history of transient ischemic attack (TIA), and cerebral infarction without residual deficits; Z87.01 Personal history of pneumonia (recurrent); Z79.1 Long term (current) use of non-steroidal anti-inflammatories (NSAID); J44.9 Chronic obstructive pulmonary disease, unspecified; Z88.2 Allergy status to sulfonamides; Z88.1 Allergy status to other antibiotic agents; Z88.5 Allergy status to narcotic agent; Z88.8 Allergy status to other drugs, medicaments and biological substances; Z79.899 Other long term (current) drug therapy; Z79.82 Long term (current) use of aspirin; Z79.02 Long term (current) use of antithrombotics/antiplatelets
CPT/HCPCS: 36415; 71045; 80053; 81001; 85025; 93005; 93010; 99285-25

== ENCOUNTER 2019-07-16 10:22 | Inpatient (IN) | payer MEDICARE, SELFPAY ==
[~2019-07-16] VITALS: Ht 157.5 cm; Wt 114.3 kg
[2019-07-16 10:59] LABS: Source, Urine Catheter
[2019-07-16] MEDS ORDERED: ASPI325 PO (10:59)
[2019-07-16] MEDS ORDERED: ACET500 PO (11:00)
[2019-07-16 11:11] LABS: BASOPHILS ABSOLUTE AUTO 0.04 K/mm3 (0.00-0.23); BASOPHILS PERCENT AUTO 1 % (0-2); EOSINOPHILS ABSOLUTE AUTO 0.32 K/mm3 (0.00-0.68); EOSINOPHILS PERCENT AUTO 6 % (0-6); Hematocrit 48.9 % (33.0-51.0); Hemoglobin 15.4 g/dL (11.5-16.0); IMMATURE GRAN ABSOLUTE AUTO 0.01 K/mm3 (0.00-0.10); IMMATURE GRAN PERCENT AUTO 0 % (0-1); LYMPHOCYTES ABSOLUTE AUTO 1.45 K/mm3 (0.84-5.20); LYMPHOCYTES PERCENT AUTO 27 % (21-46); MONOCYTES ABSOLUTE AUTO 0.24 K/mm3 (0.16-1.47); MONOCYTES PERCENT AUTO 5 % (4-13); Mean Corpuscular HGB 29.8 pg (26.0-34.0); Mean Corpuscular HGB Conc 31.5 g/dL (31.5-36.5); Mean Corpuscular Volume 95 fL (80-100); Mean Platelet Volume 8.8 fL (9.1-12.4); NEUTROPHILS ABSOLUTE AUTO 3.33 K/mm3 (1.96-9.15); NEUTROPHILS PERCENT AUTO 62 % (41-73); Platelet Count 134 K/mm3 (150-400); RDW Coefficient Variation 14.9 % (11.7-14.2); RDW Standard Deviation 51.9 fL (35.1-46.3); Red Blood Cell Count 5.16 M/mm3 (3.80-5.20); White Blood Cell Count 5.39 K/mm3 (4.00-11.30)
[2019-07-16 11:24] LABS: Blood, Urine 4+ (Neg); Glucose Qualitative, Urine Neg (Neg); Ketones, Urine Neg (Neg); Leukocyte Esterase, Urine 3+ (Neg); Nitrite, Urine Pos (Neg); Protein, Urine 3+ (Neg); Specific Gravity, Urine 1.025 (1.003-1.022); Urobilinogen, Urine 1+ (Normal)
[2019-07-16 11:36] LABS: Albumin, Blood 4.1 g/dL (3.4-5.0); Albumin/Globulin Ratio 1.3 (0.8-1.8); Bilirubin, Total 0.5 mg/dL (0.1-1.0); Calcium, Blood 11.5 mg/dL (8.5-10.1); Creatinine, Blood 1.57 mg/dL (0.40-1.00); Globulin, Blood 3.1 g/dL (2.2-4.0); Potassium, Blood 3.4 mmol/L (3.5-5.5); Total Protein, Blood 7.2 g/dL (6.4-8.2)
[2019-07-16 11:37] LABS: Appearance, Urine Hazy (Clear); Bilirubin, Urine 1+ (Neg); Color, Urine Yellow (P-Yellow)
[2019-07-16 11:38] LABS: Bacteria Mod /hpf; Hyaline Casts 0-2 /lpf (0-2); Squamous Epithelial Cells Few /hpf (Few); Trichomonas Few /hpf; White Blood Cells, Urine 50-100 /hpf (0-5)
[2019-07-16] MEDS ORDERED: BREO ELLIPTA 21 EACH INH (12:06)
[2019-07-16 16:36] LABS: Free Thyroxine 0.15 ng/dL (0.70-1.60)
[2019-07-16 16:39] LABS: Triiodothyronine, Free <0.50 pg/mL (2.18-3.98)
[2019-07-16] MEDS ORDERED: ACET325 PO (17:27)
--- NOTE | 2019-07-16 19:31 | NUR ---
SHIFT SUMMARY 1630 PT RECEIVED FROM ER. ALERT AND ORIENTED X3. VSS. LUNG SOUNDS CLEAR, JUNCTIONAL RHYTHM RATE 40s-50s. DENIES PAIN AT THIS TIME. REDNESS NOTED TO ELENITA AREA AND UNDER PANNUS, YEAST NOTED UNDER RIGHT PANNUS. PER PT, SHE TAKES PILLS WITH APPLESAUCE. TRACE EDEMA NOTED TO BLE. REPORT TO STONE CARVER RN.
--- NOTE | 2019-07-16 19:32 | NUR ---
1930: DNR BAND APPLIED TO RIGHT WRIST AFTER 2 RN PT VERIFICATION.
[2019-07-17 04:51] LABS: BASOPHILS ABSOLUTE AUTO 0.04 K/mm3 (0.00-0.23); BASOPHILS PERCENT AUTO 1 % (0-2); EOSINOPHILS ABSOLUTE AUTO 0.21 K/mm3 (0.00-0.68); EOSINOPHILS PERCENT AUTO 3 % (0-6); Hematocrit 44.1 % (33.0-51.0); Hemoglobin 13.8 g/dL (11.5-16.0); IMMATURE GRAN ABSOLUTE AUTO 0.01 K/mm3 (0.00-0.10); IMMATURE GRAN PERCENT AUTO 0 % (0-1); LYMPHOCYTES ABSOLUTE AUTO 0.93 K/mm3 (0.84-5.20); LYMPHOCYTES PERCENT AUTO 15 % (21-46); MONOCYTES ABSOLUTE AUTO 0.38 K/mm3 (0.16-1.47); MONOCYTES PERCENT AUTO 6 % (4-13); Mean Corpuscular HGB 29.6 pg (26.0-34.0); Mean Corpuscular HGB Conc 31.3 g/dL (31.5-36.5); Mean Corpuscular Volume 94 fL (80-100); Mean Platelet Volume 9.2 fL (9.1-12.4); NEUTROPHILS ABSOLUTE AUTO 4.71 K/mm3 (1.96-9.15); NEUTROPHILS PERCENT AUTO 75 % (41-73); Platelet Count 120 K/mm3 (150-400); RDW Coefficient Variation 14.9 % (11.7-14.2); RDW Standard Deviation 51.8 fL (35.1-46.3); Red Blood Cell Count 4.67 M/mm3 (3.80-5.20); White Blood Cell Count 6.28 K/mm3 (4.00-11.30)
[2019-07-17 05:11] LABS: Albumin, Blood 3.3 g/dL (3.4-5.0); Albumin/Globulin Ratio 1.2 (0.8-1.8); Bilirubin, Total 0.5 mg/dL (0.1-1.0); Bun/Creatinine Ratio 15.6 (12.0-20.0); Calcium, Blood 10.3 mg/dL (8.5-10.1); Creatinine, Blood 1.47 mg/dL (0.40-1.00); Globulin, Blood 2.7 g/dL (2.2-4.0); Potassium, Blood 3.8 mmol/L (3.5-5.5)
--- NOTE | 2019-07-17 06:33 | NUR ---
SUMMARY: ADMIT DAY 2 UTI AND RIGHT HIP PAIN ON HOSPITALIST SERVICE. VSS, AFEBRILE, SPO2 >92% ON ROOM AIR, REMAINS A&O AND USES CALL LIGHT APPROPRIATELY. TELE 40-50S JUNCTIONAL RYTHYM; ASYMPTOMATIC. INCONTINENT WITH FREQUENT CHANGES AND MOVES WELL IN BED. CONTINUE ANTIBIOTICS AND MONITOR POTASSIUM TODAY.
--- NOTE | 2019-07-17 14:40 | NUR ---
Spiritual care visit conducted. Patient is sitting on a chair and alert. Patient tells me about her medical history, her family history and her spiritual journey. Patient attends the [facility] [employer] [facility] in [place] and tells me that her michaela is what gets her through her difficulties. Her son several years ago of a stroke, her is in a care facility after he had a stroke and patient tells me that she is on her fourth stroke. Patient explains that she lives with her daughter and granddaughter and plans to go there when she is discharged. I listen empathically and provide pastoral correctional classification counselor, recitation scripture, companionship and prayer. Patient responds well and voices appreciation for the visit.
--- NOTE | 2019-07-17 19:27 | NUR ---
on strict swallow percautions, this was explained to pt along with reasons, up in chair for all meals, medications whole in , call light in reach, a+o, infusing with no s/sx of infection or infiltration, report given to day shift
--- NOTE | 2019-07-17 19:59 | NUR ---
ASSUMED CARE: REPORT RECEIVED FROM MARC Lorenzana RN. ASSUMED CARE OF THIS PT AT APPROX 0700. ON ASSESSMENT, THE PT IS A&O, PLEASANT & COOPERATIVE. SHE IS SITTING UP IN THE CHAIR & DENIES PAIN AT THIS TIME. STS HAVING SOME PAIN TO BLE DURING TRANSFERS/ AMBULATION THAT IS "NORMAL" FOR HER. PT ON RA W/ O2 SATS > 92%. MONITOR SHOWS SB W/ 1ST DEGREE HB, HR 50s. SLIGHT HYPOTENSION, SBP 90s, PT IS ASYMPTOMATIC OF THIS W/ NO REPORTED DIZZINESS OR LIGHTHEADEDNESS. SHE HAS NO GI/ COMPLAINTS. PER REPORT, THE PT IS INCONTINENT & ATTENDS ARE IN PLACE. WILL CONTINUE TO MONITOR & UPDATE NEEDED.
--- NOTE | 2019-07-18 01:00 | NUR ---
RECEIVED REPORT FROM LINDA SOLIMAN AND ASSUMED PT CARE. PT RESTING IN BED WITH EYES CLOSED, WILL CONTINUE TO MONITOR.
[2019-07-18 03:44] LABS: Hematocrit 40.9 % (33.0-51.0); Hemoglobin 12.7 g/dL (11.5-16.0); Mean Corpuscular HGB 29.5 pg (26.0-34.0); Mean Corpuscular HGB Conc 31.1 g/dL (31.5-36.5); Mean Corpuscular Volume 95 fL (80-100); Mean Platelet Volume 8.9 fL (9.1-12.4); Platelet Count 110 K/mm3 (150-400); RDW Coefficient Variation 14.9 % (11.7-14.2); RDW Standard Deviation 51.7 fL (35.1-46.3); White Blood Cell Count 5.18 K/mm3 (4.00-11.30)
[2019-07-18 04:07] LABS: Bun/Creatinine Ratio 14.6 (12.0-20.0); Calcium, Blood 10.2 mg/dL (8.5-10.1); Creatinine, Blood 1.37 mg/dL (0.40-1.00); Potassium, Blood 3.9 mmol/L (3.5-5.5)
--- NOTE | 2019-07-18 06:42 | NUR ---
SHIFT SUMMARY PT HAS RESTED WELL THROUGH SHIFT, DENIES COMPLAINTS. ALERT AND ORIENTED, CALLING APPROPRIATELY WITH CALL LIGHT. TELE SHOWS SB WITH 1ST DEGREE, 40'S TO 50'S, PT IS ASYMPTOMATIC. INCONTINENT OF URINE, ATTENDS CHANGED MULTIPLE TIMES. NO ACUTE CHANGES, WILL REPORT OFF TO DAY SHIFT RN.
--- NOTE | 2019-07-18 19:28 | NUR ---
sitting up in chair when shift report given, reviewed percautions with day shift and pt, call light in reach, saline locked
--- NOTE | 2019-07-19 07:27 | NUR ---
SHIFT SUMMARY ASSUMED CARE OF PT AT AROUND 1900, PT AWAKE AND ALERT SITTING IN BEDSIDE CHAIR. WITH TRANSFER TO BED (AND ALL TRANSFERS PER REPORT) PT EXPERIENCES SIGNIFICANT ANXIETY/PANIC, AND REQUIRES 2 PERSON ASSIST FOR THAT REASON. MEDICATED PT PER MD ORDER AND UNIT PROTOCOL, ALL VSS T/O SHIFT. PT DENIES PAIN. PT WAS INCONTINENT OF URINE X 2 THIS SHIFT AND WEARS TABBED BRIEFS. PASSED CARE AND REPORT TO ONCOMING SHIFT, BED LOW & LOCKED, CALL LIGHT WITHIN REACH.
--- NOTE | 2019-07-19 10:55 | NUR ---
PCU DAYSHIFT ASSUMED CARE OF PT APPROX. 0700. PT A&OX4. VITAL SIGNS STABLE. ASSESSMENT COMPLETED. PT REPORTS FEELING GOOD THIS MORNING. PT ABLE TO GET UP TO CHAIR WITH TO PERSON ASSIST FOR BREAKFAST. PLACED PILLOW BEHIND BACK TO HELP SIT ALL THE UP DURING BREAKFAST. PT REPORT SLIGHT PAIN BUT TOLERABLE AT THIS TIME. PT REPORTS THIS TO BE CHRONIC. PT ABLE TO PARTICIPATE WITH PHYSICAL THERAPY TODAY. PT BACK IN BED AT THIS TIME. BED IN LOW POSITION, CALL LIGHT IN REACH AND PT DENIES ANY NEEDS. INDY CONTINUE TO MONITOR
--- NOTE | 2019-07-19 19:41 | NUR ---
SHIFT SUMMARY PT PLEASANT, COOPERATIVE AND USES CALL LIGHT APROPRIATELY. PT VITAL SIGNS STABLE. ASSESSMENT FINDINGS REMAIN UNCHANGED. PT REPORTS HAVING A GOOD DAY. PT ABLE TO PARTICIPATE WITH PHYSICAL THERAPY TODAY. WAS ABLE TO PROVIDE PT WITH A RECLINER AND PT SPENT MOST OF EVENING IN THIS. PT SAT UP ALL UP WAY IN THE CHAIR FOR EACH MEAL. WAS NOTIFIED BY CARE MANAGEMENT RN THAT THE PLAN AT DISCHARGE IS GO D/C TO A SNF AND AWAITING INSURANCE AND THEN PT WILL BE SENT TO GO TO SNF. PT REMAINS IN CHAIR. CALL LIGHT IN REACH AND PT DENIES ANY NEEDS. WILL CONTINUE TO MONITOR UNTIL HANDOFF TO NIGHTSHIFT RN.
--- NOTE | 2019-07-20 06:48 | NUR ---
SHIFT SUMMARY ASSUMED CARE OF PT AT 1900, PT AWAKE, A&O SITTING IN RECLINER BESIDE BED. MEDICATED AND TREATED PER MD ORDER AND UNIT PROTOCOL, INCLUDING ROUTINE (PER PT) ASPIRIN AT HS AND 1000MG TYLENOL @ 0200. AT 2300 PT TRANSFERED TO BED FOR SLEEP REQUIRING 2 STAFF D/T ANXIETY/PANIC WHICH PT SAYS IS CHRONIC WITH STANDING. ALL VSS T/O SHIFT, NO ISSUES OTHER THAN REPORTED HERE. WILL CONTINUE TO MONITOR AND WILL PASS CARE AND REPORT TO ONCOMING SHIFT. BED LOCKED AND LOW, HOB TO 35 DEGREES, FEET RAISED, CALL LIGHT W/IN REACH.
--- NOTE | 2019-07-20 15:46 | NUR ---
Initial Visit: Palliative Care Consult for Symptom Management. Pt is A&O and denies pain, dyspnea, and nausea at this time. Pt denies anxiety at this time but reports occasional axiety due to fear of slipping or falling with transfers. Pt apppears comfortable with no S/S of distress at this time. Engaged in therapeutic discussion regarding nursing home planning. Pt reports living with her daughter and granddaughter both have medical issues of their own. Daughter and granddaughter assist with her ADLs. Pt reports the need for assistance with transfers, ambulation, dressing, bathing, and experiences incontinence. Educated Pt on the importance of planning ahead as her chronic illnesses and age are factors in care needs. Educated on the possibility at some point she may need to consider a higher level of care. Pt is receptive of visit and reports no concerns at this time. Spoke with bedside nurse Charlette and discussed case. Palliative Care will remain available.
--- NOTE | 2019-07-20 17:31 | NUR ---
NEW ROOM RECIEVED NEW ROOM ASSIGNMENT. PT NOTIFIED. REPORT GIVEN TO RECIEVING RN. PT TO BE ESCORTED BY PEER STAFF MEMBER AFTER DINNER.
--- NOTE | 2019-07-21 07:17 | NUR ---
PATIENT HAD TROUBLE WALKING FROM HER CHAIR TO THE BED. SHE IS VERY ANXIOUS ABOUT HER VERTIGO AND FEARFUL OF FALLING. SHE IS TOO WEAK TO DO MORE THAN STAND/PIVOT TRANSFERS. SHE WAS INCONTINENT OF B&B TONIGHT. RECEIVED TYLENOL FOR GENERALIZED ACHES. , HER SKIN IS DRY AND FUNGAL LOOKING. SHE IS VERY PLEASANT AND COOPERATIVE WITH CARE. SHE WANTS TO TALK ABOUT HER MEDS WITH THE DAYTIME PROVIDER.
--- NOTE | 2019-07-21 15:45 | NUR ---
ARRIVED TO ROOM VIA STRETCHER. WHEEZES TO UPPER LOBES, DRY COUGH WITH REPORTED BUT NOT WITNESSED SPUTUM (YELLOW/BROWN). PT OX4. ORIENTED TO ROOM AND EXPLAINED FREQUENT ROUNDING. CALL LIGHT WITHIN REACH. BED LOW AND IN LOCKED POSTION. PT DENIES ANY PAIN AT THIS TIME.
--- NOTE | 2019-07-21 18:27 | NUR ---
SHIFT SUMMARY OX3 INCONTINENT. 2 PERSON MAX PIVOT ASSIST TO CHAIR FOR MEALS. UP IN CHAIR FOR SEVERAL HOURS TODAY. COOPERATIVE. DENIES ANY PAIN OR OTHER DISTRESS. DISCHARGED BY DR. MARTINEZ YESTERDAY BUT INSURANCE AND FAMILY CONCERNS DELAYED DISCHARGE. PT NOW REQUESTING TO GO HOME WITH DAUGHTER STATING "IT COST TOO MUCH TO GO TO REHAB".
--- NOTE | 2019-07-22 04:50 | NUR ---
SHIFT SUMMARY- NO ACUTE EVENTS OVERNIGHT. PT. SLEPT WELL T/O THE NIGHT, NO APPARENT DISTRESS NOTED. REPOSITIONED Q2HRS AND PRN. PT. INCONTINENT, ATTENDS IN PLACE. PT. ANTICIPATING D/C TO HOME WITH DAUGHTER TODAY. CALL LIGHT WITHIN REACH AND SIDE RAILS UP X3. WILL CONT TO MONITOR.
--- NOTE | 2019-07-22 18:04 | NUR ---
SHIFT SUMMARY- PLANS WERE FOR PT TO DISCHARGE TO SNF; HOWEVER PT WAS DECLINED FOR SNF DISCHARGE. PER DISCHARGE PLANNING NEW PLAN IS TO POSSIBLY DC HOME WITH HOME HEALTH; HOWEVER FAMILY HAS CONVEYED THAT THIS MAY NOT WORK. PT IS INSISTING TO FAMILY SHE WILL GO TO [facility] FOR OUT PT THERAPY. FAMILY SEEMS TO BE OK WITH THIS AND REQUESTED TO SPEAK TO DISCHARGE PLANNING IN THE MORNING. CALLED KASHIF ADHIKARI AND LEFT A MESSAGE FOR HER FOR THE MORNING. PT ALERT SITTING UP IN HER RECLINER AT THIS TIME. PT DECLINED TO GET BACK INTO BED AT THIS TIME WILL ATTEMPT AGAIN PRIOR TO SHIFT CHANGE. PT CURRENTLY EATING DINNER. CALL LIGHT IN REACH, PT 2 PERSON MAX ASSIST TRANSFER.
--- NOTE | 2019-07-23 04:56 | NUR ---
SHIFT SUMMARY- NO ACUTE CHANGES OVERNIGHT. PT. SLEPT ON/OFF DURING THE NIGHT. MEDICATED FOR PAIN 1X. PT. 2 PERSON MAX ASSIST. ATTENDS IN PLACE. D/C PLANNING FOR POSSIBLE D/C TO HOME WITH FAMILY ON OR OUTPATIENT THERAPY CLINIC. PT. DENIED ANY NEEDS T/O THE NIGHT, RESTING COMFORTABLY IN BED, NO APPARENT DISTRESS NOTED. CALL LIGHT WITHIN REACH AND SIDE RAILS UP X3. WILL CONT TO MONITOR
[2019-07-23 14:26] LABS: Hematocrit 40.5 % (33.0-51.0); Hemoglobin 12.8 g/dL (11.5-16.0); Mean Corpuscular HGB 29.6 pg (26.0-34.0); Mean Corpuscular HGB Conc 31.6 g/dL (31.5-36.5); Mean Corpuscular Volume 94 fL (80-100); Mean Platelet Volume 9.1 fL (9.1-12.4); Platelet Count 126 K/mm3 (150-400); RDW Coefficient Variation 16.1 % (11.7-14.2); RDW Standard Deviation 54.3 fL (35.1-46.3); Red Blood Cell Count 4.33 M/mm3 (3.80-5.20); White Blood Cell Count 4.32 K/mm3 (4.00-11.30)
[2019-07-23 14:51] LABS: Anion Gap 3 mmol/L (6-16); Blood Urea Nitrogen 13 mg/dL (8-24); Bun/Creatinine Ratio 13.6 (12.0-20.0); CO2, Blood 31 mmol/L (21-32); Calcium, Blood 10.9 mg/dL (8.5-10.1); Chloride, Blood 108 mmol/L (98-108); Creatinine, Blood 0.95 mg/dL (0.40-1.00); Glomerular Filtration Rate >60 (60-); Glucose, Blood 88 mg/dL (70-99); Potassium, Blood 4.3 mmol/L (3.5-5.5); Sodium, Blood 142 mmol/L (136-145)
--- NOTE | 2019-07-23 17:09 | NUR ---
SHIFT SUMMARY PT WORKED WITH PT THIS SHIFT. PT UP TO CHAIR TWICE. POSSIBLE DC TOMORROW WITH HOME HEALTH & FAMILY. NO OTHER CHANGES IN ASSESSMENT AT THIS TIME. VSS. WILL CONITNUE TO MONITOR UNTIL TURNOVER IS COMPLETE.
--- NOTE | 2019-07-24 04:07 | NUR ---
SHIFT SUMMARY- PT. GIVEN SHOWER LAST NIGHT WHILE IN SHOWER CHAIR, IN PREPARATION FOR AM DISCHARGE. PT. ASSISTED BACK TO BED AND SLEPT COMFORTABLY T/O THE NIGHT, NO APPARENT DISTRESS NOTED. TYLENOL REQUESTED 1X EARLY AM WELL NEB TX. MEDICATED PER EMAR AND TX GIVEN BY RT. DENIED OTHER NEEDS T/O THE NIGHT. PT. ANTICIPATING DISCHARGE TO HOME WITH HOME HEALTH TODAY AROUND 10AM. CALL LIGHT WITHIN REACH AND SIDE RAILS UP X2. WILL CONT TO MONITOR.
--- NOTE | 2019-07-24 08:00 | NUR ---
PT PLEASANT COOP A/O. DENIES PIAN. SITTING IN CHAIR. STATES DIZZY WHEN TRANSFERS. MED PER EMAR. H/R REG, NO MURMER NOTED. NO TLE. LUNGS CLEAR WITH LIGHT CRACKLES MID AND LOW RT. DRY COUGH, NOTIFIED ON R.A. RESP EASY, UNLABORED. BT X4 LAST BM LAST NITE. VOIDS INCONT. IN ATTENDS. CDI AT THIS TIME. IN CHAIR. CHAIR ALARM ON FOR SAFETY. CALL LITE IN REACH.
[2019-07-24] MEDS ORDERED: Vsl#3 Capsule1 EACH (11:10)
[2019-07-24] MEDS ORDERED: SYNTHROID175 MCG PO (11:11)
[2019-07-24] MEDS ORDERED: ALBU2.5V5 INH (11:14)
[2019-07-24] MEDS ORDERED: CEPH500 PO (11:14)
--- NOTE | 2019-07-24 12:08 | NUR ---
DISCHARGE REVIEWED WITH PT. PT VERBALIZED UNDERSTANDING OF MEDS AND INSTRUCTIONS. IV PULLED INTACT. NO TELE. PT WHEELED TO DOOR BY [facility] AT 1210
== END 2019-07-24 12:07 | disposition home health service (06) | DRG 689 ==
LOC: ER 10:22 → PCU 16:09 → MEDS 07-20 18:25
PROVIDERS: Emergency Medicine; Internal Medicine; Nurse Practitioner Acute Care; ADMIT Family Medicine
DX: N39.0 Urinary tract infection, site not specified (principal); G92 Toxic encephalopathy; M87.051 Idiopathic aseptic necrosis of right femur; I69.951 Hemiplegia and hemiparesis following unspecified cerebrovascular disease affecting right dominant side; R00.1 Bradycardia, unspecified; E11.22 Type 2 diabetes mellitus with diabetic chronic kidney disease; E03.9 Hypothyroidism, unspecified; I12.9 Hypertensive chronic kidney disease with stage 1 through stage 4 chronic kidney disease, or unspecified chronic kidney disease; J44.9 Chronic obstructive pulmonary disease, unspecified; I25.10 Atherosclerotic heart disease of native coronary artery without angina pectoris; E66.9 Obesity, unspecified; N18.3 Chronic kidney disease, stage 3 (moderate); Z66 Do not resuscitate; Z74.09 Other reduced mobility; E78.5 Hyperlipidemia, unspecified; I25.2 Old myocardial infarction; Z88.1 Allergy status to other antibiotic agents; Z88.0 Allergy status to penicillin; Z88.2 Allergy status to sulfonamides; Z88.8 Allergy status to other drugs, medicaments and biological substances; Z79.01 Long term (current) use of anticoagulants; Z79.02 Long term (current) use of antithrombotics/antiplatelets; Z79.82 Long term (current) use of aspirin; Z79.899 Other long term (current) drug therapy
CPT/HCPCS: 36415; 36430; 72170; 80048; 80053; 81001; 83735; 84439; 84443; 84481; 85025; 85027; 87077; 87086; 87186; 90686; 92526; 92610; 93005; 93010; 94640; 94760; 96365; 96366; 96368; 96375; 97110; 97162; 97166; 97530; 97535; 99285-25; J0692; J1650; J3475; J3480; J7030; P9612

== ENCOUNTER 2019-08-06 13:48 | Emergency (ER) | payer MEDICARE, SELFPAY ==
[~2019-08-06] VITALS: Ht 157.5 cm; Wt 113.4 kg
[~2019-08-06 13:48] MED LIST changes: +ACET500 PO; +ALBU2.5V5 INH; +BREO ELLIPTA 21 EACH INH; +SYNTHROID175 MCG PO; +Vsl#3 Capsule1 EACH
[2019-08-06] MEDS ORDERED: ACET500 PO (14:11)
[2019-08-06 14:13] LABS: BASOPHILS ABSOLUTE AUTO 0.02 K/mm3 (0.00-0.23); BASOPHILS PERCENT AUTO 1 % (0-2); EOSINOPHILS ABSOLUTE AUTO 0.15 K/mm3 (0.00-0.68); EOSINOPHILS PERCENT AUTO 4 % (0-6); Hematocrit 42.3 % (33.0-51.0); Hemoglobin 13.1 g/dL (11.5-16.0); IMMATURE GRAN ABSOLUTE AUTO 0.01 K/mm3 (0.00-0.10); IMMATURE GRAN PERCENT AUTO 0 % (0-1); LYMPHOCYTES ABSOLUTE AUTO 0.66 K/mm3 (0.84-5.20); LYMPHOCYTES PERCENT AUTO 18 % (21-46); MONOCYTES ABSOLUTE AUTO 0.29 K/mm3 (0.16-1.47); MONOCYTES PERCENT AUTO 8 % (4-13); Mean Platelet Volume 8.9 fL (9.1-12.4); NEUTROPHILS PERCENT AUTO 69 % (41-73); Platelet Count 103 K/mm3 (150-400); RDW Coefficient Variation 16.9 % (11.7-14.2); RDW Standard Deviation 60.4 fL (35.1-46.3); Red Blood Cell Count 4.36 M/mm3 (3.80-5.20); White Blood Cell Count 3.63 K/mm3 (4.00-11.30)
[2019-08-06 14:16] LABS: Mean Corpuscular Volume 97 fL (80-100)
[2019-08-06 14:41] LABS: Alanine Aminotransfer (ALT/SGP 14 U/L (12-78); Albumin, Blood 3.6 g/dL (3.4-5.0); Albumin/Globulin Ratio 1.2 (0.8-1.8); Alk Phos 85 U/L (50-136); Anion Gap 4 mmol/L (6-16); Aspartate Aminotrans (AST/SGOT 12 U/L (12-37); Bilirubin, Total 0.7 mg/dL (0.1-1.0); Blood Urea Nitrogen 13 mg/dL (8-24); Bun/Creatinine Ratio 15.2 (12.0-20.0); CO2, Blood 30 mmol/L (21-32); Calcium, Blood 10.2 mg/dL (8.5-10.1); Chloride, Blood 109 mmol/L (98-108); Creatinine, Blood 0.86 mg/dL (0.40-1.00); Globulin, Blood 2.9 g/dL (2.2-4.0); Glomerular Filtration Rate >60 (60-); Glucose, Blood 93 mg/dL (70-99); Potassium, Blood 4.1 mmol/L (3.5-5.5); Sodium, Blood 143 mmol/L (136-145); Total Protein, Blood 6.5 g/dL (6.4-8.2)
[2019-08-06] MEDS ORDERED: CEPH500 PO (16:20)
== END 2019-08-06 16:55 | disposition home or self-care (01) ==
LOC: ER 13:48
PROVIDERS: Emergency Medicine
DX: L03.115 Cellulitis of right lower limb (principal); L03.116 Cellulitis of left lower limb; E11.9 Type 2 diabetes mellitus without complications; I10 Essential (primary) hypertension; J44.9 Chronic obstructive pulmonary disease, unspecified; Z88.2 Allergy status to sulfonamides; Z86.73 Personal history of transient ischemic attack (TIA), and cerebral infarction without residual deficits; Z88.5 Allergy status to narcotic agent; Z88.8 Allergy status to other drugs, medicaments and biological substances; Z88.1 Allergy status to other antibiotic agents; Z79.899 Other long term (current) drug therapy; Z79.02 Long term (current) use of antithrombotics/antiplatelets
CPT/HCPCS: 36415; 71045; 80053; 83605; 83880; 85025; 99284-25

== ENCOUNTER 2019-08-16 21:34 | Emergency (ER) | payer MEDICARE, SELFPAY ==
[~2019-08-16] VITALS: Ht 157.5 cm; Wt 113.4 kg
[2019-08-16 22:30] LABS: BASOPHILS ABSOLUTE AUTO 0.02 K/mm3 (0.00-0.23); BASOPHILS PERCENT AUTO 0 % (0-2); EOSINOPHILS ABSOLUTE AUTO 0.24 K/mm3 (0.00-0.68); EOSINOPHILS PERCENT AUTO 5 % (0-6); Hematocrit 43.2 % (33.0-51.0); Hemoglobin 13.3 g/dL (11.5-16.0); IMMATURE GRAN ABSOLUTE AUTO 0.01 K/mm3 (0.00-0.10); IMMATURE GRAN PERCENT AUTO 0 % (0-1); LYMPHOCYTES ABSOLUTE AUTO 0.89 K/mm3 (0.84-5.20); LYMPHOCYTES PERCENT AUTO 18 % (21-46); MONOCYTES ABSOLUTE AUTO 0.34 K/mm3 (0.16-1.47); MONOCYTES PERCENT AUTO 7 % (4-13); Mean Corpuscular HGB 30.2 pg (26.0-34.0); Mean Corpuscular HGB Conc 30.8 g/dL (31.5-36.5); Mean Corpuscular Volume 98 fL (80-100); Mean Platelet Volume 8.7 fL (9.1-12.4); NEUTROPHILS ABSOLUTE AUTO 3.41 K/mm3 (1.96-9.15); NEUTROPHILS PERCENT AUTO 70 % (41-73); Platelet Count 144 K/mm3 (150-400); RDW Coefficient Variation 15.9 % (11.7-14.2); RDW Standard Deviation 57.7 fL (35.1-46.3); White Blood Cell Count 4.91 K/mm3 (4.00-11.30)
[2019-08-16 22:47] LABS: Free Thyroxine 1.72 ng/dL (0.70-1.60); Magnesium, Blood 1.5 mg/dL (1.6-2.4)
[2019-08-16 22:49] LABS: Albumin, Blood 3.6 g/dL (3.4-5.0); Albumin/Globulin Ratio 1.2 (0.8-1.8); Bilirubin, Total 0.6 mg/dL (0.1-1.0); Bun/Creatinine Ratio 9.7 (12.0-20.0); Creatinine, Blood 1.03 mg/dL (0.40-1.00); Potassium, Blood 3.4 mmol/L (3.5-5.5); Thyroid Stimulating Hormone 0.245 uIU/mL (0.360-4.800); Total Protein, Blood 6.6 g/dL (6.4-8.2)
== END 2019-08-17 01:30 | disposition home or self-care (01) ==
LOC: ER 21:34
PROVIDERS: Emergency Medicine
DX: E05.80 Other thyrotoxicosis without thyrotoxic crisis or storm (principal); R53.1 Weakness; Z88.2 Allergy status to sulfonamides; Z88.1 Allergy status to other antibiotic agents; Z88.5 Allergy status to narcotic agent; Z88.8 Allergy status to other drugs, medicaments and biological substances; Z79.899 Other long term (current) drug therapy; Z79.02 Long term (current) use of antithrombotics/antiplatelets
CPT/HCPCS: 80053; 83735; 84439; 84443; 85025; 93005; 93010; 99285-25

== ENCOUNTER 2019-09-13 16:49 | Observation (INO) | payer MEDICARE, SELFPAY ==
[~2019-09-13] VITALS: Ht 157.5 cm; Wt 103.7 kg
[~2019-09-13 16:49] MED LIST changes: -ALBU2.5V5 INH
[2019-09-13 17:24] LABS: Hematocrit 46.2 % (33.0-51.0); Hemoglobin 14.4 g/dL (11.5-16.0); Mean Corpuscular HGB 30.1 pg (26.0-34.0); Mean Corpuscular HGB Conc 31.2 g/dL (31.5-36.5); Mean Corpuscular Volume 97 fL (80-100); Mean Platelet Volume 8.8 fL (9.1-12.4); Platelet Count 169 K/mm3 (150-400); RDW Coefficient Variation 13.9 % (11.7-14.2); RDW Standard Deviation 50.1 fL (35.1-46.3); Red Blood Cell Count 4.79 M/mm3 (3.80-5.20)
[2019-09-13 17:27] LABS: Source, Urine Catheter
[2019-09-13] MEDS ORDERED: POTA10T PO (17:29)
[2019-09-13 17:30] LABS: Bilirubin, Urine Neg (Neg); Blood, Urine 1+ (Neg); Glucose Qualitative, Urine Neg (Neg); Ketones, Urine Neg (Neg); Leukocyte Esterase, Urine 3+ (Neg); Nitrite, Urine Neg (Neg); Protein, Urine 1+ (Neg); Urobilinogen, Urine NORM (Normal)
[2019-09-13] MEDS ORDERED: LEVSOD112 PO (17:30)
[2019-09-13] MEDS ORDERED: FURO20 PO (17:30)
[2019-09-13 17:35] LABS: Appearance, Urine Clear (Clear); Color, Urine Yellow (P-Yellow)
[2019-09-13 17:36] LABS: Bacteria Few /hpf; Squamous Epithelial Cells Not Seen /hpf (Few); White Blood Cells, Urine TNTC /hpf (0-5)
[2019-09-13 17:37] LABS: Bun/Creatinine Ratio 18.8 (12.0-20.0); Creatinine, Blood 1.01 mg/dL (0.40-1.00); Potassium, Blood 4.1 mmol/L (3.5-5.5)
[2019-09-13] MEDS ORDERED: CEPH500 PO (17:54)
[2019-09-13] MEDS ORDERED: Nystatin15 GM TOP (17:54)
[2019-09-13] MEDS ORDERED: FLUT1DIS5 INH (19:45)
[2019-09-13] MEDS ORDERED: ALBU3IS NEB (19:46)
[2019-09-14 04:29] LABS: BASOPHILS ABSOLUTE AUTO 0.03 K/mm3 (0.00-0.23); BASOPHILS PERCENT AUTO 1 % (0-2); EOSINOPHILS PERCENT AUTO 6 % (0-6); Hematocrit 42.8 % (33.0-51.0); Hemoglobin 13.1 g/dL (11.5-16.0); IMMATURE GRAN ABSOLUTE AUTO 0.01 K/mm3 (0.00-0.10); IMMATURE GRAN PERCENT AUTO 0 % (0-1); LYMPHOCYTES ABSOLUTE AUTO 0.79 K/mm3 (0.84-5.20); LYMPHOCYTES PERCENT AUTO 16 % (21-46); MONOCYTES ABSOLUTE AUTO 0.39 K/mm3 (0.16-1.47); MONOCYTES PERCENT AUTO 8 % (4-13); Mean Corpuscular HGB 29.8 pg (26.0-34.0); Mean Corpuscular HGB Conc 30.6 g/dL (31.5-36.5); Mean Corpuscular Volume 97 fL (80-100); Mean Platelet Volume 9.2 fL (9.1-12.4); NEUTROPHILS ABSOLUTE AUTO 3.37 K/mm3 (1.96-9.15); NEUTROPHILS PERCENT AUTO 69 % (41-73); Platelet Count 137 K/mm3 (150-400); RDW Coefficient Variation 13.9 % (11.7-14.2); White Blood Cell Count 4.89 K/mm3 (4.00-11.30)
[2019-09-14 04:51] LABS: Anion Gap 6 mmol/L (6-16); Blood Urea Nitrogen 17 mg/dL (8-24); Bun/Creatinine Ratio 21.2 (12.0-20.0); CO2, Blood 29 mmol/L (21-32); Calcium, Blood 10.3 mg/dL (8.5-10.1); Chloride, Blood 108 mmol/L (98-108); Glomerular Filtration Rate >60 (60-); Glucose, Blood 89 mg/dL (70-99); Potassium, Blood 3.7 mmol/L (3.5-5.5); Sodium, Blood 143 mmol/L (136-145)
--- NOTE | 2019-09-14 07:55 | NUR ---
PATIENT WAS PLEASANT AND COOPERATVE WITH CARE THIS SHIFT. SEE PHOTOS OF RED RASH ON LOWER RIGHT ABD AND PANUSS AREA. ALSO LABIA ARE RAW AND LEFT UPPER THIGH - RED, INDURATED. SLOUGHING OFF TISSUES.. WIPED GENTLY AND APPLIED NYSTATIN CREAM AFTER CHANGES. LOOKES SLIGHTLY REDUCED THIS MORNING. PT ALSO HAS A STAGE 1 PRESSURE ULCER ON HER LEFT BUTTOCK. APPLIED CREAM TO THE AREA. BED LOW AND LOCKED. CALL JAMES WITHIN REACH.
--- NOTE | 2019-09-14 10:09 | NUR ---
Pt known from previous visit. Pt provided space to discuss her current situation. Was taken to ER due to UTI. tSephanie verbalizes the desire and sees benefits of going into a fdc. "I would like to go to [facility] because I've been there before." Pt states she would go to [facility] if need be. Daughter Chelo enters and restates what pt has said. Both discuss other health issues pt's GD are dealing with currently. Empathic listening, validation, and verbal prayer was extended to those present.
--- NOTE | 2019-09-14 11:25 | NUR ---
PATIENT DAUGHTER WAS IN THIS MORING AN STATED SHE WASN'T THE CAREGIVER AND WHEN HER MOM WENT TO THE ER SHE BECAME JUST THE DAUGHTER. WHEN PALLITIVE CARE NURSE TRIED TO TALK TO HER ABOUT THE NEXT STEPS TO GETTING HER INTO A FACILITY AND GIVE HER A LIST OF THING THAT ARE REQUIRED FOR MEDICARE PART B, THE TKER SAID SHE NEEDED SOMEONE ELSE TO DO THIS SHE COULDN'T. WHEN IT WAS EXPLAINED THAT BY JUST DROPPING HER OFF AT THE HOSPITAL AND LEAVING IS CONSIDERED ABANDONMENT SHE SAID SHE DIDN'T ABANDON HER MOTHER AND IF THAT WHAT WE THOUGH THEN PUT HER IN A HOME AND SHE LEFT. THE DAUGHTER THEN CALLED BACK AND SAID SHE DIDN'T ABANDON HER MOTHER AGAIN AND THAT SHE WAS TOLD BY THE HOME HEALTH NURSE TO BRING HER INTO THE HOSPITAL AND THEY WOULD TAKE CARE OF GETTING HER INTO A FACILITY. SHE SAID SHE CANNOT PHYSICALLY CARE FOR HER MOTHER ANYMORE AND JUST WANTS SOMEONE TO TELL HER WHAT SHE NEEDS TO DO TO HELP GET HER INTO A NURSING FACILITY.
--- NOTE | 2019-09-14 18:08 | NUR ---
NO ACUTE CHANGES NOTED. PATIENT COMPLAINED OF HEADACHE EARLIER BUT IT WAS RELEIVED WITH PRN TYLENOL. NO CURRRENT COMPLAINTS OF PAIN OR DISCOMFORT NOTED. THE REDNESS IN THE PATIENT ABDOMINAL AREA IS IMPROVING WITH FREQUENT CHANGES AND CREAM FOR YEAST. NO OTHER ISSUES NOTED AT THIS TIME. WILL CONTINUE TO MONITOR FOR CHANGES.
--- NOTE | 2019-09-15 07:51 | NUR ---
PATIENT TURNED Q2HRS THIS HSIFT AND SKIN CARE PERFORMED. SKIN IS SOMEWHAT IMPROVED TODAY. PT MAY BE AN ASPIRATION RISK. TOOK AWAY THE STRAWS AND GAVE HER A SIPPY CUP WITH HONEY THICKENED APPLE JUICE - - EASIER TO AG EQUIPMENT FIELD SERVICE TECHNICIAN, AND SHE IS COUGHING WAY LESS!
--- NOTE | 2019-09-15 12:16 | NUR ---
FAMILY: PATIENT'S DAUGHTER AND GRANDDAUGHTER IN TO VISIT PATIENT THIS AM. BOTH EXPLAINED TO THE RN THAT THEY WERE UNABLE TO PHYSICALLY AND FINANCIALLY CARE FOR THE PATIENT AT HOME. FAMILY EXPRESSED DISTRESS ABOUT THE SITUATION. THEY WANTED TO MAKE IT CLEAR THAT THEY SIMPLY DID NOT KNOW WHAT TO DO AND THAT THEY WANT THE PATIENT TO GET THE CARE THAT SHE DESERVES. FAMILY IS AWARE OF THE PLAN TO MEET WITH SOCIAL WORK TOMORROW TO DEVELOP A PLAN. DISCUSSED THIS WITH THE PATIENT ONCE HER FAMILY HAD LEFT. PATIENT EXPRESSED THAT THEY HAVE ALL BEEN DISCUSSING THE SITUATION FOR A WHILE NOW AND THAT THE PATIENT UNDERSTANDS THAT SHE NEEDS A DIFFERENT SITUATION THAN LIVING WITH HER FAMILY.
--- NOTE | 2019-09-15 18:19 | NUR ---
END OF SHIFT REPORT: PATIENT REPORTED SOME LOWER LEG PAIN THIS MORNING. PATIENT MEDICATED PER PRNS WITH TYLENOL. PATIENT ABLE TO ASSIST WITH REPOSITION IN THE BED. PATIENT REPORTED THAT SHE WOULD LIKE TO CONTINUE TO WORK ON GETTING UP TO THE BED. PATIENT'S FAMILLY VISITED THE PATIENT AGAIN THIS AFTERNOON. CONVERSATION IS CALM AND PLESANT. PATIENT DENIES DISTRESS OR DISCOMFORT RELATED TO HER CURRENT SITUATION AND NEED FOR PLACEMENT. REPORTED TO RN THAT THE PATIENT MAY NEED A SWALLOW EVALUATION. PATIENT SHOWED NO DIFICULTY WITH SWALLOWING THROUGHOUT THE SHIFT. MEDICATIONS GIVEN WITH APPLESAUCE WITHOUT DIFFICULTY. PATIENT REPORTS THAT SHE IS NOT SUPPOSED TO USE STRAWS. COMPLIED WITH THIS TODAY. WILL CONTINUE TO MONITOR.
--- NOTE | 2019-09-16 07:24 | NUR ---
SHIFT SUMMARY PT IS A 78 Y/O FEMALE, ADMITTED FOR IMPAIRED MOBILITY. SHE IS A&O X 4, AND A 2P MAX ASSIST UP OUT OF BED. SHE WAS MEDICATED ONCE FOR CHRONIC FOOT PAIN WITH PRN TYLENOL, WHICH HELPED TO RELIEVE HER PAIN WELL. NO COMPLAINTS OF NAUSEA OR SOB. VITAL SIGNS STABLE. NO OTHER ACUTE CHANGES IN PT CONDITION NOTED DURING THE NIGHT. REPORT GIVEN TO ONCOMING RN.
--- NOTE | 2019-09-16 16:02 | NUR ---
Spiritual Care inital note: Mrs. Quesada was alone in room and sitting in chair. She appears quite debilitated and weak. She tells me she knows she is nearing the end of her life. She is not afraid of . She has a strong michaela in a loving God that brings her hope and peace. She tells me she is "ok with whatever happens." We prayed together for God's will to be done at her request. No fears or concerns presented. I will remain available.
--- NOTE | 2019-09-16 19:23 | NUR ---
SHIFT SUMMARY GARY COMPLAINED OF SOME FOOT PAIN FOR WHICH TYLENOL WAS HELPFUL. Q2 TURNS AND INCONTINENCE CARE PROVIDED. H AD 3 SOFT BM THIS SHIFT, DR HANCOCK INFORMED TODAY AT 1915 AND STATED THAT WE DO NOT NEED A CDIF SAMPLE AT THIS TIME. GOT UP TO CHAIR WITH AO1/2, GETS VERY SOB ON EXERTION SHE GETS SO ANXIOUS AND AFRAID THAT SHE IS GOING TO FALL. ASP PRECAUTIONS, TELE DC'D, VERY RED ELENITA AREA, CREAM APPLIED AND FREQUENT INCONTINENCE CHECKS. TOOK MEDS PRESCRIBED.
--- NOTE | 2019-09-17 05:46 | NUR ---
09/17/19 0530 TURNED Q 2 HOURS WITH ELNEITA-CARE GIVEN WITH EACH ATTENDS BRIEF CHANGE. SKIN BARRIOR CREAM TO RED SKIN. VITALS STABLE. DENIES ANY DISCOMFORT.
[2019-09-17] MEDS ORDERED: NYSTRITC TOP (11:53)
[2019-09-17] MEDS ORDERED: SENN187 PO (11:57)
[2019-09-17] MEDS ORDERED: ACET325 PO (11:58)
[2019-09-17] MEDS ORDERED: ALBU2.5V5 INH (11:59)
[2019-09-17] MEDS ORDERED: BISA10S PR (11:59)
[2019-09-17] MEDS ORDERED: Tazicef1 G1 IV (12:01)
--- NOTE | 2019-09-17 14:12 | NUR ---
1358 PT DISCHARGED TO [facility] VIA W/C TRANSPORT, D/C PACKET WITH DIE SETTER. POWERGLIDE PLACED PRIOR TO D/C FOR IV ABX. FAMILY NOTIFIED AT PICKUP TIME AT 1310. PT DRESSED IN HOME DRESS AND BRIEF CHANGED JUST PRIOR TO D/C. REPORT CALLED TO IOANA AT 1405. NO NEW CHANGES OR CONCERNS.
== END 2019-09-17 13:58 ==
LOC: ER 16:49 → MEDS 16:50 → ER 20:43 → MEDS 20:47 → ENPENDDIS 09-17 11:00 → MEDS 09-17 13:58
PROVIDERS: Emergency Medicine; Nurse Practitioner Acute Care; ADMIT Internal Medicine
DX: N39.0 Urinary tract infection, site not specified (principal); J44.9 Chronic obstructive pulmonary disease, unspecified; K21.9 Gastro-esophageal reflux disease without esophagitis; E03.9 Hypothyroidism, unspecified; I69.351 Hemiplegia and hemiparesis following cerebral infarction affecting right dominant side; E11.51 Type 2 diabetes mellitus with diabetic peripheral angiopathy without gangrene; I25.10 Atherosclerotic heart disease of native coronary artery without angina pectoris; I25.2 Old myocardial infarction; I10 Essential (primary) hypertension; E66.01 Morbid (severe) obesity due to excess calories; L03.90 Cellulitis, unspecified; Z88.0 Allergy status to penicillin; Z88.1 Allergy status to other antibiotic agents; Z88.2 Allergy status to sulfonamides; Z88.5 Allergy status to narcotic agent; Z66 Do not resuscitate
CPT/HCPCS: 36415; 80048; 81001; 82947; 85025; 85027; 87077; 87086; 87186; 93005; 93010; 94640; 94760; 96365; 96366; 96372; 96375; 97110; 97162; 97166; 97530; 97535; 99285-25; A9270; A9270-GY; G0378; J0713; J1644; J2405; J7050

== ENCOUNTER → 2019-12-13 | Outpatient (CLI) | payer OTHER ==
[~2019-12-13] MED LIST changes: +ALBU2.5V5 INH; +ALBU3IS NEB; +FLUT1DIS5 INH; +FURO20 PO; +LEVSOD112 PO; +NYSTRITC TOP; +Nystatin15 GM TOP; +SENN187 PO; +Tazicef1 G1 IV
== END ==
LOC: LAB SHORT 11:52 → LAB 11:52
DX: N39.0 Urinary tract infection, site not specified (principal)
CPT/HCPCS: 87077; 87086; 87186

== ENCOUNTER → 2019-12-24 | Outpatient (CLI) | payer OTHER ==
[2019-12-24 16:32] LABS: Bilirubin, Urine Neg (Neg); Blood, Urine 5+ (Neg); Glucose Qualitative, Urine Neg (Neg); Ketones, Urine Neg (Neg); Leukocyte Esterase, Urine 3+ (Neg); Nitrite, Urine Neg (Neg); Protein, Urine 2+ (Neg); Specific Gravity, Urine 1.015 (1.003-1.022); Urobilinogen, Urine NORM (Normal)
[2019-12-24 16:39] LABS: Appearance, Urine Cloudy (Clear); Color, Urine Yellow (P-Yellow)
[2019-12-24 16:40] LABS: White Blood Cells, Urine TNTC /hpf (0-5)
[2019-12-24 16:46] LABS: Bacteria Mod /hpf; Squamous Epithelial Cells Few /hpf (Few)
== END | disposition home or self-care (01) ==
LOC: LAB SHORT 14:58 → LAB 14:58
PROVIDERS: Family Medicine
DX: N39.0 Urinary tract infection, site not specified (principal)
CPT/HCPCS: 81001; 87077; 87086; 87186

== ENCOUNTER → 2019-12-31 | Outpatient (CLI) | payer OTHER ==
[2019-12-31 17:43] LABS: Bilirubin, Urine Neg (Neg); Blood, Urine Neg (Neg); Glucose Qualitative, Urine Neg (Neg); Ketones, Urine Neg (Neg); Leukocyte Esterase, Urine Neg (Neg); Nitrite, Urine Neg (Neg); Protein, Urine 2+ (Neg); Urobilinogen, Urine NORM (Normal)
[2019-12-31 17:57] LABS: Appearance, Urine Hazy (Clear); Color, Urine Yellow (P-Yellow)
[2019-12-31 17:58] LABS: Bacteria Few /hpf; Red Blood Cells, Urine 0-2 /hpf (0-2); Squamous Epithelial Cells Many /hpf (Few); White Blood Cells, Urine 0-2 /hpf (0-5)
== END | disposition home or self-care (01) ==
LOC: LAB SHORT 15:29 → LAB 15:29
PROVIDERS: Family Medicine
DX: N39.0 Urinary tract infection, site not specified (principal)
CPT/HCPCS: 81001; 87086

== ENCOUNTER → 2020-02-14 | Outpatient (CLI) | payer OTHER ==
[2020-02-14 19:11] LABS: Bilirubin, Urine Neg (Neg); Blood, Urine Neg (Neg); Glucose Qualitative, Urine Neg (Neg); Ketones, Urine Neg (Neg); Leukocyte Esterase, Urine Neg (Neg); Nitrite, Urine Neg (Neg); Protein, Urine Neg (Neg); Specific Gravity, Urine 1.025 (1.003-1.022); Urobilinogen, Urine NORM (Normal)
[2020-02-14 19:23] LABS: Appearance, Urine Clear (Clear); Color, Urine Pale Yellow (P-Yellow)
== END | disposition home or self-care (01) ==
LOC: LAB SHORT 16:13 → LAB 16:13
PROVIDERS: Family Medicine
DX: N39.0 Urinary tract infection, site not specified (principal)
CPT/HCPCS: 81003; 87086

== ENCOUNTER → 2020-03-12 | Outpatient (CLI) | payer OTHER ==
[2020-03-12 15:19] LABS: Source, Urine Clean Catch
[2020-03-12 15:56] LABS: Bilirubin, Urine Neg (Neg); Blood, Urine Neg (Neg); Glucose Qualitative, Urine Neg (Neg); Ketones, Urine Neg (Neg); Leukocyte Esterase, Urine 2+ (Neg); Nitrite, Urine Neg (Neg); Protein, Urine Neg (Neg); Specific Gravity, Urine 1.005 (1.003-1.022); Urobilinogen, Urine NORM (Normal)
[2020-03-12 16:11] LABS: Appearance, Urine Clear (Clear); Color, Urine Pale Yellow (P-Yellow)
[2020-03-12 16:12] LABS: Bacteria Rare /hpf; Red Blood Cells, Urine 0-2 /hpf (0-2); Squamous Epithelial Cells Few /hpf (Few); White Blood Cells, Urine 25-50 /hpf (0-5)
== END | disposition home or self-care (01) ==
LOC: LAB SHORT 11:00 → LAB 11:00
PROVIDERS: Family Medicine
DX: N39.0 Urinary tract infection, site not specified (principal)
CPT/HCPCS: 81001; 87077; 87086; 87186

== ENCOUNTER → 2020-04-01 | Outpatient (CLI) | payer OTHER ==
[2020-04-02 12:28] LABS: Appearance, Urine Clear (Clear); Bilirubin, Urine Neg (Neg); Blood, Urine Neg (Neg); Color, Urine Yellow (P-Yellow); Glucose Qualitative, Urine Neg (Neg); Ketones, Urine Neg (Neg); Leukocyte Esterase, Urine 2+ (Neg); Nitrite, Urine Neg (Neg); Protein, Urine Neg (Neg); Specific Gravity, Urine 1.015 (1.003-1.022); Urobilinogen, Urine NORM (Normal)
[2020-04-02 12:47] LABS: Bacteria Few /hpf; Red Blood Cells, Urine 0-2 /hpf (0-2); Squamous Epithelial Cells Mod /hpf (Few)
== END | disposition home or self-care (01) ==
LOC: LAB SHORT 11:03 → LAB 11:03
PROVIDERS: Family Medicine
DX: N39.0 Urinary tract infection, site not specified (principal)
CPT/HCPCS: 81001; 87077; 87086; 87186

== ENCOUNTER → 2020-05-28 | Outpatient (CLI) | payer OTHER ==
[2020-05-28 15:55] LABS: Appearance, Urine Hazy (Clear); Bilirubin, Urine Neg (Neg); Blood, Urine Neg (Neg); Color, Urine Yellow (P-Yellow); Glucose Qualitative, Urine Neg (Neg); Ketones, Urine Neg (Neg); Leukocyte Esterase, Urine 2+ (Neg); Nitrite, Urine Pos (Neg); Protein, Urine Neg (Neg); Urobilinogen, Urine NORM (Normal)
[2020-05-28 16:11] LABS: Red Blood Cells, Urine Not Seen /hpf (0-2); Squamous Epithelial Cells Not Seen /hpf (Few)
[2020-05-28 16:12] LABS: Bacteria Mod /hpf
== END | disposition home or self-care (01) ==
LOC: LAB SHORT 14:45 → LAB 14:45
PROVIDERS: Family Medicine
DX: N39.0 Urinary tract infection, site not specified (principal)
CPT/HCPCS: 81001; 87077; 87086; 87186

== ENCOUNTER 2020-06-26 09:34 | Inpatient (IN) | payer OTHER ==
[~2020-06-26] VITALS: Ht 152.4 cm; Wt 113.4 kg
[~2020-06-26 09:34] MED LIST changes: -ALBU3IS NEB; -FLUT1DIS5 INH; -FURO20 PO; -LEVSOD112 PO; -NYSTRITC TOP; -PANT40 PO
[2020-06-26 10:33] LABS: BASOPHILS ABSOLUTE AUTO 0.02 K/mm3 (0.00-0.23); BASOPHILS PERCENT AUTO 0 % (0-2); EOSINOPHILS ABSOLUTE AUTO 0.07 K/mm3 (0.00-0.68); EOSINOPHILS PERCENT AUTO 1 % (0-6); Hemoglobin 13.3 g/dL (11.5-16.0); IMMATURE GRAN ABSOLUTE AUTO 0.03 K/mm3 (0.00-0.10); IMMATURE GRAN PERCENT AUTO 0 % (0-1); LYMPHOCYTES ABSOLUTE AUTO 0.65 K/mm3 (0.84-5.20); LYMPHOCYTES PERCENT AUTO 6 % (21-46); MONOCYTES PERCENT AUTO 6 % (4-13); Mean Corpuscular HGB Conc 30.2 g/dL (31.5-36.5); Mean Corpuscular Volume 83 fL (80-100); Mean Platelet Volume 8.8 fL (9.1-12.4); NEUTROPHILS ABSOLUTE AUTO 10.42 K/mm3 (1.96-9.15); NEUTROPHILS PERCENT AUTO 88 % (41-73); Platelet Count 189 K/mm3 (150-400); RDW Coefficient Variation 17.8 % (11.7-14.2); Red Blood Cell Count 5.31 M/mm3 (3.80-5.20); White Blood Cell Count 11.89 K/mm3 (4.00-11.30)
[2020-06-26 10:45] LABS: Alanine Aminotransfer (ALT/SGP 11 U/L (12-78); Albumin, Blood 3.3 g/dL (3.4-5.0); Albumin/Globulin Ratio 0.8 (0.8-1.8); Alk Phos 95 U/L (50-136); Anion Gap 4 mmol/L (6-16); Aspartate Aminotrans (AST/SGOT 14 U/L (12-37); Bilirubin, Total 0.9 mg/dL (0.1-1.0); Blood Urea Nitrogen 16 mg/dL (8-24); Bun/Creatinine Ratio 13.7 (12.0-20.0); CO2, Blood 30 mmol/L (21-32); Calcium, Blood 10.9 mg/dL (8.5-10.1); Chloride, Blood 105 mmol/L (98-108); Creatinine, Blood 1.17 mg/dL (0.40-1.00); Globulin, Blood 4.1 g/dL (2.2-4.0); Glomerular Filtration Rate 48 (60-); Glucose, Blood 116 mg/dL (70-99); Potassium, Blood 4.4 mmol/L (3.5-5.5); Sodium, Blood 139 mmol/L (136-145); Total Protein, Blood 7.4 g/dL (6.4-8.2)
[2020-06-26 10:48] LABS: Troponin I <0.015 ng/mL (0.000-0.040)
[2020-06-26 14:51] LABS: Source, Urine Catheter
[2020-06-26 14:52] LABS: Bilirubin, Urine Neg (Neg); Blood, Urine 4+ (Neg); Glucose Qualitative, Urine Neg (Neg); Ketones, Urine Neg (Neg); Leukocyte Esterase, Urine 3+ (Neg); Nitrite, Urine Pos (Neg); Protein, Urine 3+ (Neg); Urobilinogen, Urine NORM (Normal)
[2020-06-26 15:45] LABS: Appearance, Urine Cloudy (Clear); Color, Urine Yellow (P-Yellow)
[2020-06-26 15:49] LABS: Bacteria Many /hpf; Squamous Epithelial Cells Few /hpf (Few); White Blood Cells, Urine TNTC /hpf (0-5)
[2020-06-27 04:28] LABS: BASOPHILS ABSOLUTE AUTO 0.02 K/mm3 (0.00-0.23); BASOPHILS PERCENT AUTO 0 % (0-2); EOSINOPHILS ABSOLUTE AUTO 0.03 K/mm3 (0.00-0.68); EOSINOPHILS PERCENT AUTO 0 % (0-6); Hematocrit 43.4 % (33.0-51.0); Hemoglobin 12.8 g/dL (11.5-16.0); IMMATURE GRAN ABSOLUTE AUTO 0.02 K/mm3 (0.00-0.10); IMMATURE GRAN PERCENT AUTO 0 % (0-1); LYMPHOCYTES ABSOLUTE AUTO 0.37 K/mm3 (0.84-5.20); LYMPHOCYTES PERCENT AUTO 4 % (21-46); MONOCYTES ABSOLUTE AUTO 0.45 K/mm3 (0.16-1.47); MONOCYTES PERCENT AUTO 5 % (4-13); Mean Corpuscular HGB 24.6 pg (26.0-34.0); Mean Corpuscular HGB Conc 29.5 g/dL (31.5-36.5); Mean Corpuscular Volume 84 fL (80-100); Mean Platelet Volume 8.8 fL (9.1-12.4); NEUTROPHILS PERCENT AUTO 91 % (41-73); Platelet Count 160 K/mm3 (150-400); RDW Coefficient Variation 17.4 % (11.7-14.2); RDW Standard Deviation 52.5 fL (35.1-46.3); White Blood Cell Count 9.29 K/mm3 (4.00-11.30)
[2020-06-27 04:49] LABS: Albumin, Blood 2.9 g/dL (3.4-5.0); Albumin/Globulin Ratio 0.8 (0.8-1.8); Bilirubin, Total 0.8 mg/dL (0.1-1.0); Bun/Creatinine Ratio 16.9 (12.0-20.0); Calcium, Blood 10.4 mg/dL (8.5-10.1); Creatinine, Blood 1.18 mg/dL (0.40-1.00); Globulin, Blood 3.8 g/dL (2.2-4.0); Potassium, Blood 4.3 mmol/L (3.5-5.5); Total Protein, Blood 6.7 g/dL (6.4-8.2)
--- NOTE | 2020-06-27 05:33 | NUR ---
SHIFT SUMMARY SBO, A/O X4, VSS. REDDENED AREA UNDER PANNUS/UPPER THIGHS, PLACED PILLOWCASE UNDER IT TO HELP KEEP AREA DRY, WILL ADVISE DAY RN TO REQUEST NYSTATIN TOPICAL. STAGE 2 PRESSURE ULCER ON LEFT GLUTEAL AREA (PIC IN CHART), MEPILEX APPLIED TO WOUND, BRUISING NOTED T/O GLUTEAL/POSTERIOR UPPER THIGHS, REPOSITIONED PT Q2 TO HELP W/ BRUISING/PRESSURE ULCER. SCAB NOTED ON LABIA, QUESTIONED PT ON HOW IT HAPPENED, PT STATED SHE DIDN'T KNOW. WILL CONTINUE TO MONITOR AND REPORT TO ONCOMING DAY RN.
--- NOTE | 2020-06-27 09:21 | NUR ---
SPOKE WITH PT DAUGHTER AT ABOUT 0900. SHE PLANS TO FAX SURGICAL UNIT AN UPDATED MED LIST OF PT FROM [facility].
--- NOTE | 2020-06-27 11:55 | NUR ---
NGT TO GRAVITY AT THIS TIME
--- NOTE | 2020-06-27 18:30 | NUR ---
SUMMARY: NO ACUTE CHANGE TODAY. VSS, A/O. HAS TROUBLE USING CALL LIGHT RELATED TO ARM WEAKNESS, STOKE HX. PT REPORTS NO NEW WEAKNESS. PT TURNED AND CHANGED Q2 PRN. WORKED WITH PHYSICAL THERAPY. HAS DENIED PAIN AT ABD AND N/V. NGT TO GRAVITY DRAIN, PT NPO. HOME MEDS STARTED. NO ACUTE SAFETY CONCERNS, WILL REPORT TO DIRK SOLIMAN.
--- NOTE | 2020-06-28 04:04 | NUR ---
SHIFT SUMMARY LYING IN HIGH FOWLERS WITH EYES CLOSED. HAS RESTED OFF AND ON THROUGHOUT SHIFT. HAS DENIED PAIN, TURNED Q 2HRS FOR SKIN MANAGEMENT. CONTINUES AT O2 AT 2L/NC. NG TUBE TO LEFT NARE, CONNECTED TO CANISTER DRAINING TO GRAVITY IS PATENT. PLACEMENT VERIFIED WITH AIR BOLUS AND RESIDUAL CHECK. HAS BEEN CLEARING HER MOUTH WITH TISSUES, BUT IF COLLECTION BECOMES TENACIOUS REQUIRES YANKER. DENEIS FURTHER NEEDS OR WANTS AT THIS TIME. SAFETY MEASURES IN PLACE. WILL CONTINUE TO MONITOR AND GIVE HAND OFF TO ONCOMING SHIFT USING SBAR.
[2020-06-28 04:46] LABS: BASOPHILS ABSOLUTE AUTO 0.02 K/mm3 (0.00-0.23); BASOPHILS PERCENT AUTO 0 % (0-2); EOSINOPHILS ABSOLUTE AUTO 0.18 K/mm3 (0.00-0.68); EOSINOPHILS PERCENT AUTO 2 % (0-6); Hematocrit 41.9 % (33.0-51.0); Hemoglobin 12.2 g/dL (11.5-16.0); IMMATURE GRAN ABSOLUTE AUTO 0.01 K/mm3 (0.00-0.10); IMMATURE GRAN PERCENT AUTO 0 % (0-1); LYMPHOCYTES ABSOLUTE AUTO 0.52 K/mm3 (0.84-5.20); LYMPHOCYTES PERCENT AUTO 7 % (21-46); MONOCYTES ABSOLUTE AUTO 0.49 K/mm3 (0.16-1.47); MONOCYTES PERCENT AUTO 7 % (4-13); Mean Corpuscular HGB 24.7 pg (26.0-34.0); Mean Corpuscular HGB Conc 29.1 g/dL (31.5-36.5); Mean Corpuscular Volume 85 fL (80-100); Mean Platelet Volume 8.7 fL (9.1-12.4); NEUTROPHILS ABSOLUTE AUTO 6.37 K/mm3 (1.96-9.15); NEUTROPHILS PERCENT AUTO 84 % (41-73); Platelet Count 154 K/mm3 (150-400); RDW Coefficient Variation 17.5 % (11.7-14.2); RDW Standard Deviation 53.5 fL (35.1-46.3); Red Blood Cell Count 4.94 M/mm3 (3.80-5.20); White Blood Cell Count 7.59 K/mm3 (4.00-11.30)
[2020-06-28 05:09] LABS: Magnesium, Blood 2.5 mg/dL (1.6-2.4)
[2020-06-28 05:17] LABS: Alanine Aminotransfer (ALT/SGP <6 U/L (12-78); Albumin, Blood 2.6 g/dL (3.4-5.0); Albumin/Globulin Ratio 0.7 (0.8-1.8); Alk Phos 73 U/L (50-136); Anion Gap 4 mmol/L (6-16); Aspartate Aminotrans (AST/SGOT 15 U/L (12-37); Bilirubin, Total 0.6 mg/dL (0.1-1.0); Blood Urea Nitrogen 18 mg/dL (8-24); Bun/Creatinine Ratio 15.8 (12.0-20.0); CO2, Blood 31 mmol/L (21-32); Calcium, Blood 10.2 mg/dL (8.5-10.1); Chloride, Blood 109 mmol/L (98-108); Creatinine, Blood 1.14 mg/dL (0.40-1.00); Globulin, Blood 3.7 g/dL (2.2-4.0); Glomerular Filtration Rate 49 (60-); Glucose, Blood 85 mg/dL (70-99); Potassium, Blood 4.1 mmol/L (3.5-5.5); Sodium, Blood 144 mmol/L (136-145); Total Protein, Blood 6.3 g/dL (6.4-8.2)
--- NOTE | 2020-06-28 11:03 | NUR ---
PT REPORTED TO APOLLO CEVALLOS THAT SHE SAW BUGS ON THE CEILING. DR. COSTA NOTIFIED THAT PT IS HAVING SOME POSSIBLE MILD VISUAL HALLUCINATION. PT IS ALERT AND ORIENTED X3 AND RESPONS APPROPRIATELY TO QUESTIONS. PT HAS RIGHT SIDED WEAKNESS AT BASELINE. PUPILS ARE WNL. WILL CONTINUE TO MONITOR.
--- NOTE | 2020-06-28 12:14 | NUR ---
[facility] WAS CONTACTED REGARDING PT'S BASELINE. THEY REPORTED PT IS ABLE TO TAKE HER PILLS IN APPLESAUCE, IS ON A MECHANICAL SOFT DIET AND TOLERATES THIN LIQUIDS AND STRAWS. SHE IS A MINIMAL ASSIST AT BASELINE. INCONTINENT AT TIMES. PT IS MOSTLY ORIENTED AT BASELINE BUT HAS CONFUSION AND INCREASED WEAKNESS WHEN SHE HAS A BLADDER INFECTION.
--- NOTE | 2020-06-28 13:19 | NUR ---
NG TUBE WAS CLAMPED THIS MORINGING AT 1020. PT WAS ABLE TO TOLERATE CLEAR LIQUIDS WITH NG TUBE CLAMPED. NG TUBE WAS REMOVED AT [address] CEJA ORDER. PT TOLERATED WELL.
--- NOTE | 2020-06-28 19:34 | NUR ---
SHIFT SUMMARY PT WAS ADMITTED FOR SBO AND UTI. PT HAS BOWEL SOUNDS THIS SHIFT. TOLERATED CLEAR LIQUIDS AND NG TUBE REMOVED. PT REPORTED PASSING FLATUS. PT IS CURRENTLY A TWO PERSON ASSIST. [facility] CONTACTED REGARDING PT'S BASELINE; STAFF REPORTED SHE HAS SOME MILD CONFUSION AT BASELINE AND IS A MINIMAL ASSIST FOR TRANSFERS. PT HAD DIFFICULTY SWALLOWING WATER THIS SHIFT, ST CONSULT REQUESTED. [facility] STAFF REPORTS PT HAS A MECHANICAL SOFT DIET, PILLS WHOLE WITH APPLESAUCE, AND TOLERATED THIN LIQUIDS AND STRAWS AT BASELINE. PT HAS BEEN INCONTINENT, ATTENDS IN PLACE. PT REQUIRES ASSISTANCE WITH REPOSITIONING BUT CAN ALSO PARTICIPATE WITH ROLLING FROM SIDE TO SIDE. VSS. REPORT GIVEN TO DIRK SOLIMAN.
--- NOTE | 2020-06-29 04:15 | NUR ---
PT CONTINUES WITH CONFUSION TOINGHT. STATES SHE HAS BEEN CONFUSED FOR "A FEW DAYS" REASSURED. PT TRYING TO GET OOB NOT USING CALL LIGHT FOR ASSIST. TOSSING LEGS TO SIDE OF BED. CONTINUING BED ALARM FOR SAFETY.
--- NOTE | 2020-06-29 05:00 | NUR ---
PHONE CALL TO DR BAKER PTS HEART RATE DIPPING AND STAYING IN 40'S. PT HAS HAD HEART RATE OF 50-60 AND OCC 70. PT PT DENIES CP OR ANUY CHANGES. STATES HEART RATE GOES DOWN AT HOME.DR BAKER GAVE ORDER FOR TEL.
[2020-06-29 05:01] LABS: Bun/Creatinine Ratio 14.4 (12.0-20.0); Calcium, Blood 10.5 mg/dL (8.5-10.1); Creatinine, Blood 1.04 mg/dL (0.40-1.00); Potassium, Blood 3.9 mmol/L (3.5-5.5)
--- NOTE | 2020-06-29 05:59 | NUR ---
SUMMARY PT INITIALLY SINUS SARAH @52.NOW SINUS RHYTHMN @60.
--- NOTE | 2020-06-29 13:02 | NUR ---
Patient is sitting up in bed and alert. Patient talks at length about her medical history, her husbands medical history and the of her son which are all tied together by multiple strokes being the common denominator. Patient tells me about her Jainism michaela and the churches in the area she has attended. Patient gets lost in the details of her stories but ultimately she gets to the pain and struggle she is going through and the emotions that accompany that ache. I normalize patient's experience, reinforce helpful attitudes and practices and provide therapeutic listening, grief support, pastoral enrollment counselor and prayer. Patient responds favorably and displays evidence of being encouraged and having her michaela restored. I will continue to remain available to patient and family.
--- NOTE | 2020-06-29 17:58 | NUR ---
SHIFT SUMMARY PT A&OX2 W/CONFUSION TODAY, VSS, TELE SINUS @ 63 BPM. DENIES PAIN. DYSPHAGIA PREC, PHILLY MECH SOFT DIET, THIN LIQUIDS WITH STRAW, UP TO CHAIR FOR DINNER, 90 DEGREES. ORAL CARE PROVIDED. STAND BEDSIDE, 3 PP HEAVY STAND PIVOT TRANSFER TO CHAIR/BED; PT ASSISTS WITH BED REPOSITIONS. MEDS WHOLE/APPLESAUCE. INCONTINENT, ATTENDS ON. WILL REPORT TO ONCOMING NOC RN.
--- NOTE | 2020-06-30 04:29 | NUR ---
SHIFT SUMMARY PT RESTED WELL T/O NIGHT. CONFUSED/COOPERATIVE. PT WITH MODERATE AMOUNT OF FLATUS THIS SHIFT. INCONTINENT IN ATTENDS. MEPILEX APPLIED TO COCCYX THIS SHIFT. NYSTATIN POWDER APPLIED TO ABD FOLDS. TELEMETRY NSR IN 60s T/O NIGHT. NO ACUTE CHANGES THIS SHIFT. PT CURRENTLY RESTING WITH CALL LIGHT IN REACH + BED ALARM FOR SAFETY.
[2020-06-30 05:33] LABS: Potassium, Blood 3.9 mmol/L (3.5-5.5)
[2020-06-30] MEDS ORDERED: CEFU500T30 PO (10:50)
--- NOTE | 2020-06-30 15:19 | NUR ---
DISCHARGE NOTE: PATIENT WAS EDUCATED ON DISCHARGE INSTRUCTIONS. SHE WAS RECEPTIVE, BUT HAS A HX OF DEMENTIA SO DETAILED PAPERWORK WAS INCLUDED IN HER DISCHARGE PACKET. SHE IS ALERT AND ORIENTED X2 WHICH IS HER BASELINE. HER VITALS HAVE BEEN WITHIN NORMAL LIMITS AND IS CURRENTLY ON ROOM AIR. HER ITEMS IN THE ROOM ARE GATHERED AND IN BAGS. HER IV HAS BEEN TAKEN OUT AND WAS WNL. SHE WILL BE TAKEN TO [facility] WHERE SHE LIV[facility]. CARE MANAGEMENT IN CONTACT WITH [facility] RELATED TO DISCHARGE. CARE MANAGEMENT ARRANGED TRANSPORT FOR THIS TIME.
--- NOTE | 2020-06-30 15:49 | NUR ---
Patient is lying in bed and resting but easily awakens to the sound of her name. Patient tells me about going back to [place] today and about her family. I listen empathically and provide prayer. Patient responds well and verbalizes the the prayer was, "very nice."
[2020-07-01] MEDS ORDERED: FLUT1DIS5 INH ×2 (15:49→21:57)
[2020-07-01] MEDS ORDERED: Aspir 8181 MG PO (21:58)
[2020-07-01] MEDS ORDERED: ALBU90OI INH (21:58)
[2020-07-01] MEDS ORDERED: POTA10T PO (22:00)
[2020-07-01] MEDS ORDERED: NYAMYC15 G1 TOP (22:01)
[2020-07-01] MEDS ORDERED: Crestor40 MG PO (22:01)
[2020-07-01] MEDS ORDERED: NYSTATIN15 GM TOP (22:01)
[2020-07-01] MEDS ORDERED: IPRAT-ALBUT 0.5-3 ML NEB (22:02)
[2020-07-01] MEDS ORDERED: LOPE2C PO (22:03)
[2020-07-01] MEDS ORDERED: BISA10S PR (22:03)
[2020-07-01] MEDS ORDERED: Milk Of Ma400 MG/5 M PO (22:03)
[2020-07-01] MEDS ORDERED: [UNRECOGNIZED DRUG - OTHER] PO (22:04)
[2020-07-01] MEDS ORDERED: FLUOCINOLONE AC TOP (22:23)
[2020-07-01] MEDS ORDERED: EUTHYROX125 MCG PO (22:23)
[2020-07-01] MEDS ORDERED: ACET325 PO (22:23)
[2020-07-01] MEDS ORDERED: PANT40 PO (22:23)
[2020-07-01] MEDS ORDERED: ALPR.5 PO (22:23)
[2020-07-01] MEDS ORDERED: CLOP75 PO (22:23)
[2020-07-01] MEDS ORDERED: FURO20 PO (22:23)
[2020-07-02] MEDS ORDERED: CEFUROXIME AXETIL PO (01:04)
== END 2020-06-30 15:40 | disposition home or self-care (01) | DRG 388 ==
LOC: ER 09:34 → SURS 13:40
PROVIDERS: Internal Medicine; Nurse Practitioner Acute Care; Physician Assistant; ADMIT Internal Medicine
DX: K56.600 Partial intestinal obstruction, unspecified as to cause (principal); G92 Toxic encephalopathy; N39.0 Urinary tract infection, site not specified; I69.351 Hemiplegia and hemiparesis following cerebral infarction affecting right dominant side; Z68.42 Body mass index [BMI] 45.0-49.9, adult; T17.818A Gastric contents in other parts of respiratory tract causing other injury, initial encounter; T50.905A Adverse effect of unspecified drugs, medicaments and biological substances, initial encounter; B96.20 Unspecified Escherichia coli [E. coli] as the cause of diseases classified elsewhere; E11.22 Type 2 diabetes mellitus with diabetic chronic kidney disease; I12.9 Hypertensive chronic kidney disease with stage 1 through stage 4 chronic kidney disease, or unspecified chronic kidney disease; N18.3 Chronic kidney disease, stage 3 (moderate); E11.51 Type 2 diabetes mellitus with diabetic peripheral angiopathy without gangrene; E78.5 Hyperlipidemia, unspecified; E66.01 Morbid (severe) obesity due to excess calories; R09.02 Hypoxemia; E03.9 Hypothyroidism, unspecified; J44.9 Chronic obstructive pulmonary disease, unspecified; K21.9 Gastro-esophageal reflux disease without esophagitis; I25.2 Old myocardial infarction; I25.10 Atherosclerotic heart disease of native coronary artery without angina pectoris; G89.29 Other chronic pain; M51.36 Other intervertebral disc degeneration, lumbar region; Z66 Do not resuscitate; Z88.2 Allergy status to sulfonamides; Z88.5 Allergy status to narcotic agent; Z88.1 Allergy status to other antibiotic agents; Z88.0 Allergy status to penicillin; Z79.02 Long term (current) use of antithrombotics/antiplatelets; Z79.82 Long term (current) use of aspirin; Z79.51 Long term (current) use of inhaled steroids; Z79.899 Other long term (current) drug therapy
CPT/HCPCS: 36415; 70450; 71045; 74022; 74176; 80048; 80053; 81001; 83690; 83735; 84484; 85025; 87077; 87086; 87186; 92610; 93005; 93010; 94640; 94762; 96374; 97162; 97166; 97530; 99285-25; A9270; A9270-GY; C9113; J0696; J7030; P9612

== ENCOUNTER → 2020-08-03 | Outpatient (CLI) | payer OTHER ==
[~2020-08-03] MED LIST changes: +ALPR.5 PO; +Aspir 8181 MG PO; +CEFU500T30 PO; +CEFUROXIME AXETIL PO; +Crestor40 MG PO; +EUTHYROX125 MCG PO; +FLUOCINOLONE AC TOP; +FLUT1DIS5 INH; +FURO20 PO; +IPRAT-ALBUT 0.5-3 ML NEB; +LOPE2C PO; +NYAMYC15 G1 TOP; +NYSTATIN15 GM TOP; +PANT40 PO; +[UNRECOGNIZED DRUG - OTHER] PO
[2020-08-03 15:40] LABS: Hematocrit 42.5 % (33.0-51.0); Hemoglobin 12.5 g/dL (11.5-16.0); Mean Corpuscular HGB 25.2 pg (26.0-34.0); Mean Corpuscular HGB Conc 29.4 g/dL (31.5-36.5); Mean Corpuscular Volume 86 fL (80-100); Mean Platelet Volume 9.4 fL (9.1-12.4); Platelet Count 165 K/mm3 (150-400); RDW Coefficient Variation 18.8 % (11.7-14.2); RDW Standard Deviation 57.7 fL (35.1-46.3); Red Blood Cell Count 4.96 M/mm3 (3.80-5.20); White Blood Cell Count 7.72 K/mm3 (4.00-11.30)
[2020-08-03 16:02] LABS: Calcium, Blood 10.3 mg/dL (8.5-10.1); Potassium, Blood 3.4 mmol/L (3.5-5.5)
== END | disposition home or self-care (01) ==
LOC: EDSTATUS 09:55 → LAB UVN 14:33
PROVIDERS: Family Medicine
DX: I25.10 Atherosclerotic heart disease of native coronary artery without angina pectoris (principal); N18.30 Chronic kidney disease, stage 3 unspecified; U07.1 COVID-19
CPT/HCPCS: 80048; 83880; 85027

== ENCOUNTER → 2020-08-15 | Outpatient (CLI) | payer OTHER | END | disposition home or self-care (01) | LOC: LAB UVN 12:44 → EDSTATUS 13:12 | DX: E03.9 Hypothyroidism, unspecified (principal); E55.9 Vitamin D deficiency, unspecified; G93.49 Other encephalopathy | CPT/HCPCS: 82306; 84443 ==

== ENCOUNTER → 2020-08-18 | Outpatient (CLI) | payer OTHER ==
[2020-08-18 07:47] LABS: Anion Gap 2 mmol/L (6-16); Blood Urea Nitrogen 13 mg/dL (8-24); Bun/Creatinine Ratio 13.7 (12.0-20.0); CO2, Blood 32 mmol/L (21-32); Chloride, Blood 109 mmol/L (98-108); Creatinine, Blood 0.95 mg/dL (0.40-1.00); Glomerular Filtration Rate >60 (60-); Glucose, Blood 93 mg/dL (70-99); Potassium, Blood 4.2 mmol/L (3.5-5.5); Sodium, Blood 143 mmol/L (136-145)
== END | disposition home or self-care (01) ==
LOC: LAB UVN 07:25 → EDSTATUS 13:16
PROVIDERS: Family Medicine
DX: J44.9 Chronic obstructive pulmonary disease, unspecified (principal); G93.49 Other encephalopathy; E11.9 Type 2 diabetes mellitus without complications
CPT/HCPCS: 80048

== ENCOUNTER → 2020-09-13 | Outpatient (CLI) | payer OTHER ==
[2020-09-13 02:34] LABS: Source, Urine Catheter
[2020-09-13 02:38] LABS: Hematocrit 41.4 % (33.0-51.0); Hemoglobin 12.4 g/dL (11.5-16.0); Mean Corpuscular Volume 90 fL (80-100); Mean Platelet Volume 8.7 fL (9.1-12.4); Platelet Count 205 K/mm3 (150-400); RDW Coefficient Variation 19.6 % (11.7-14.2); RDW Standard Deviation 65.3 fL (35.1-46.3); White Blood Cell Count 5.87 K/mm3 (4.00-11.30)
[2020-09-13 02:40] LABS: Bilirubin, Urine Neg (Neg); Blood, Urine Neg (Neg); Glucose Qualitative, Urine Neg (Neg); Ketones, Urine Neg (Neg); Leukocyte Esterase, Urine 1+ (Neg); Nitrite, Urine Neg (Neg); Protein, Urine Neg (Neg); Urobilinogen, Urine NORM (Normal)
[2020-09-13 02:49] LABS: Appearance, Urine Clear (Clear); Color, Urine Pale Yellow (P-Yellow)
[2020-09-13 02:50] LABS: Bacteria Mod /hpf; Red Blood Cells, Urine Not Seen /hpf (0-2); Squamous Epithelial Cells Rare /hpf (Few)
[2020-09-13 02:58] LABS: Bun/Creatinine Ratio 16.2 (12.0-20.0); Calcium, Blood 10.3 mg/dL (8.5-10.1); Creatinine, Blood 0.99 mg/dL (0.40-1.00); Potassium, Blood 4.7 mmol/L (3.5-5.5); Thyroid Stimulating Hormone 0.475 uIU/mL (0.360-4.800)
== END | disposition home or self-care (01) ==
LOC: LAB UVN 01:40 → EDSTATUS 15:30
PROVIDERS: Family Medicine
DX: R79.89 Other specified abnormal findings of blood chemistry (principal)
CPT/HCPCS: 80048; 81001; 84443; 85027; 87077; 87086; 87186

== ENCOUNTER → 2020-10-18 | Outpatient (CLI) | payer OTHER | END | disposition home or self-care (01) | LOC: LAB UVN 05:57 → EDSTATUS 12:53 | DX: E83.32 Hereditary vitamin D-dependent rickets (type 1) (type 2) (principal) | CPT/HCPCS: 82306 ==

== ENCOUNTER → 2020-10-26 | Outpatient (CLI) | payer OTHER ==
[2020-10-26 05:45] LABS: BASOPHILS ABSOLUTE AUTO 0.03 K/mm3 (0.00-0.23); BASOPHILS PERCENT AUTO 0 % (0-2); EOSINOPHILS ABSOLUTE AUTO 0.13 K/mm3 (0.00-0.68); EOSINOPHILS PERCENT AUTO 2 % (0-6); Hematocrit 43.3 % (33.0-51.0); Hemoglobin 13.8 g/dL (11.5-16.0); IMMATURE GRAN ABSOLUTE AUTO 0.02 K/mm3 (0.00-0.10); IMMATURE GRAN PERCENT AUTO 0 % (0-1); LYMPHOCYTES ABSOLUTE AUTO 0.83 K/mm3 (0.84-5.20); LYMPHOCYTES PERCENT AUTO 12 % (21-46); MONOCYTES ABSOLUTE AUTO 0.44 K/mm3 (0.16-1.47); MONOCYTES PERCENT AUTO 7 % (4-13); Mean Corpuscular HGB 28.2 pg (26.0-34.0); Mean Corpuscular HGB Conc 31.9 g/dL (31.5-36.5); Mean Corpuscular Volume 88 fL (80-100); Mean Platelet Volume 9.1 fL (9.1-12.4); NEUTROPHILS ABSOLUTE AUTO 5.31 K/mm3 (1.96-9.15); NEUTROPHILS PERCENT AUTO 79 % (41-73); Platelet Count 170 K/mm3 (150-400); RDW Coefficient Variation 15.7 % (11.7-14.2); RDW Standard Deviation 50.7 fL (35.1-46.3); White Blood Cell Count 6.76 K/mm3 (4.00-11.30)
[2020-10-26 06:13] LABS: Anion Gap 6 mmol/L (6-16); Blood Urea Nitrogen 16 mg/dL (8-24); Bun/Creatinine Ratio 17.1 (12.0-20.0); CO2, Blood 28 mmol/L (21-32); Calcium, Blood 10.3 mg/dL (8.5-10.1); Chloride, Blood 104 mmol/L (98-108); Creatinine, Blood 0.93 mg/dL (0.40-1.00); Glomerular Filtration Rate >60 (60-); Glucose, Blood 90 mg/dL (70-99); Potassium, Blood 4.2 mmol/L (3.5-5.5); Sodium, Blood 138 mmol/L (136-145)
== END | disposition home or self-care (01) ==
LOC: LAB UVN 05:38 → EDSTATUS 12:56
PROVIDERS: Nurse Practitioner Adult Health
DX: E11.22 Type 2 diabetes mellitus with diabetic chronic kidney disease (principal); N18.30 Chronic kidney disease, stage 3 unspecified; E03.9 Hypothyroidism, unspecified
CPT/HCPCS: 80048; 84443; 85025

== ENCOUNTER → 2020-11-12 | Outpatient (CLI) | payer OTHER ==
[2020-11-12 09:15] LABS: Hematocrit 42.2 % (33.0-51.0); Hemoglobin 13.3 g/dL (11.5-16.0); Mean Corpuscular HGB 29.2 pg (26.0-34.0); Mean Corpuscular HGB Conc 31.5 g/dL (31.5-36.5); Mean Corpuscular Volume 93 fL (80-100); Mean Platelet Volume 8.7 fL (9.1-12.4); Platelet Count 169 K/mm3 (150-400); RDW Standard Deviation 50.5 fL (35.1-46.3); Red Blood Cell Count 4.56 M/mm3 (3.80-5.20); White Blood Cell Count 6.78 K/mm3 (4.00-11.30)
[2020-11-12 09:21] LABS: Appearance, Urine Clear (Clear); Bilirubin, Urine Neg (Neg); Blood, Urine Neg (Neg); Color, Urine Yellow (P-Yellow); Glucose Qualitative, Urine Neg (Neg); Ketones, Urine Neg (Neg); Leukocyte Esterase, Urine Neg (Neg); Nitrite, Urine Neg (Neg); Protein, Urine Neg (Neg); Specific Gravity, Urine 1.015 (1.003-1.022); Urobilinogen, Urine NORM (Normal)
[2020-11-12 09:27] LABS: Alanine Aminotransfer (ALT/SGP 15 U/L (12-78); Albumin, Blood 3.2 g/dL (3.4-5.0); Alk Phos 108 U/L (50-136); Anion Gap 6 mmol/L (6-16); Aspartate Aminotrans (AST/SGOT 11 U/L (12-37); Bilirubin, Total 0.4 mg/dL (0.1-1.0); Blood Urea Nitrogen 15 mg/dL (8-24); Bun/Creatinine Ratio 16.1 (12.0-20.0); CO2, Blood 30 mmol/L (21-32); Calcium, Blood 10.9 mg/dL (8.5-10.1); Chloride, Blood 104 mmol/L (98-108); Creatinine, Blood 0.93 mg/dL (0.40-1.00); Globulin, Blood 3.1 g/dL (2.2-4.0); Glomerular Filtration Rate >60 (60-); Glucose, Blood 97 mg/dL (70-99); Potassium, Blood 4.3 mmol/L (3.5-5.5); Sodium, Blood 140 mmol/L (136-145); Total Protein, Blood 6.3 g/dL (6.4-8.2)
== END | disposition home or self-care (01) ==
LOC: LAB UVN 09:09 → EDSTATUS 13:00
PROVIDERS: Family Medicine
DX: N39.0 Urinary tract infection, site not specified (principal); I63.89 Other cerebral infarction
CPT/HCPCS: 80053; 81003; 85027; 87077; 87086; 87186

== ENCOUNTER → 2020-11-14 | Outpatient (CLI) | payer OTHER | END | disposition home or self-care (01) | LOC: EDSTATUS 13:01 → LAB UVN 20:00 | DX: N18.30 Chronic kidney disease, stage 3 unspecified (principal); E03.9 Hypothyroidism, unspecified | CPT/HCPCS: 83970; 84443 ==

== ENCOUNTER → 2020-12-02 | Outpatient (CLI) | payer OTHER ==
[2020-12-02 18:51] LABS: Source, Urine Catheter
[2020-12-02 19:35] LABS: Appearance, Urine Clear (Clear); Bilirubin, Urine Neg (Neg); Blood, Urine 1+ (Neg); Color, Urine Yellow (P-Yellow); Glucose Qualitative, Urine Neg (Neg); Ketones, Urine Neg (Neg); Leukocyte Esterase, Urine Neg (Neg); Nitrite, Urine Neg (Neg); Protein, Urine Neg (Neg); Urobilinogen, Urine NORM (Normal)
[2020-12-02 19:46] LABS: White Blood Cells, Urine 0-2 /hpf (0-5)
[2020-12-02 19:47] LABS: Bacteria Few /hpf; Calcium Oxalate Crystals Few /hpf; Squamous Epithelial Cells Rare /hpf (Few)
== END ==
LOC: EDSTATUS 13:02 → LAB UVN 18:50
PROVIDERS: Family Medicine
DX: N39.0 Urinary tract infection, site not specified (principal); Z88.1 Allergy status to other antibiotic agents; Z88.2 Allergy status to sulfonamides; Z88.5 Allergy status to narcotic agent; Z88.8 Allergy status to other drugs, medicaments and biological substances
CPT/HCPCS: 81001